=== PATIENT | male | born 1970 | race Caucasian/White ===

== ENCOUNTER → 2016-10-19 | Outpatient (CLI) | payer BC ==
[2016-10-19 15:45] VITALS: BP 164/85; PULSE 68; RESP 16; TEMP 98.1; BMI 46.3
[2016-10-19 16:51] LABS: CH 32.6; CHCM 35.5; HCT 43.5 % (39.0-53.0); HDW 2.94; HGB 15.3 gm/dL (13.0-17.5); MCH 32.4 pg (25.0-35.0); MCHC 35.1 g/dL (31.0-37.0); MCV 92.4 fL (80.0-100.0); Mean Platelet Volume 6.9; RDW 13.1 % (11.5-15.5); WBC 6.8 k/uL (3.8-10.6)
[2016-10-19 16:57] LABS: INR 1.1 (<1.1); Partial Thromboplastin Time 27.1 sec (22.0-30.0); Prothrombin Time 10.9 sec (9.0-12.0)
[2016-10-19 17:38] LABS: ALT 38 U/L (21-72); AST 30 U/L (17-59); Alkaline Phosphatase 74 U/L (38-126); Anion Gap 9 mmol/L; Blood Urea Nitrogen 21 mg/dL (9-20); Calcium 9.5 mg/dL (8.4-10.2); Carbon Dioxide 27 mmol/L (22-30); Chloride 107 mmol/L (98-107); Cholesterol 210 mg/dL (<200); Glucose 76 mg/dL (74-99); HDL Cholesterol 44 mg/dL (40-60); Iron 73 ug/dL (49-181); Magnesium 2.1 mg/dL (1.6-2.3); Non-African American GFR(MDRD) >60 (>60 ml/min/1.73 sqM); Potassium 3.8 mmol/L (3.5-5.1); Sodium 143 mmol/L (137-145); Total Bilirubin 0.6 mg/dL (0.2-1.3); Total Protein 6.9 g/dL (6.3-8.2); Triglycerides 206 mg/dL (<150)
[2016-10-19 17:49] LABS: % Iron Saturation 21.7 % (20-50); Prealbumin 31 mg/dL (18-36); Total Iron Binding Capacity 336 ug/dL (261-462)
[2016-10-19 17:54] LABS: Hemoglobin A1C 5.1 % (4.2-6.1)
[2016-10-19 18:43] LABS: Vitamin B12 487 pg/mL (239-931)
[2016-10-22 21:25] LABS: Selenium 146 mcg/L (63-160)
--- NOTE | 2016-11-11 20:59 | P.PN ---
Progress Note - Text DATE OF SERVICE: 10/19/2016. CHIEF COMPLAINT: Follow-up sleeve gastrectomy. HISTORY OF PRESENT ILLNESS: Mr. Emanuel Macias is a pleasant 46-year-old gentleman who is status post sleeve gastrectomy from September 22, 2014. He is now over 2 years out from his sleeve gastrectomy. His highest weight for 5 feet 11 inches frame was 450 pounds. [place] body weight is 178 pounds. Today he comes in weighing 332 pounds. He has lost 118 pounds. Since his last evaluation over a year ago he has actually gained 21 pounds. Percent excess weight loss is now reduced to 44%. Body mass index is reduced from 62.9 down to 46.4. BMI point reduction is 16.5. He still is 154 pounds overweight. He also reports that he actually had regained more weight in the last 6 months. However, he has been able lose at least 20 to 30 pounds in the interim. He reports increased gastroesophageal reflux disease with his weight gain. He was looking into a panniculectomy, as he reports chronic back pain and discomfort from his pannus including panniculitis. He now presents for further evaluation and management. PAST MEDICAL HISTORY: 1. Super morbid obesity. 2. Obstructive sleep apnea. 3. Vitamin D deficiency. 4. Hypertension. 5. Osteoarthritis. 6. Asthma. 7. Gastroesophageal reflux disease. 8. History of colon polyps. 9. Hemorrhoids. 10. History of hypothyroidism. PAST SURGICAL HISTORY: 1. Colonoscopy. 2. Upper endoscopy. 3. Hemorroidectomy. 4. Uvulopalatoplasty. 5. Laparoscopic cholecystectomy. 6. Sleep study. 7. Status post sleeve gastrectomy. MEDICATIONS: 1. Amlodipine. 2. Potassium. 3. Niacin. 4. Metoprolol. 5. Barnard. 6. Vitamin D. 7. Calcium. 8. Benazepril. 9. Strattera. ALLERGIES: 1. PENICILLIN. 2. SULFA. SOCIAL HISTORY: History of past tobacco abuse. His is at bedside. FAMILY HISTORY: Had an uncle with colon cancer. No family history of esophageal or stomach cancer. He has a family history of early stroke in his mother. REVIEW OF SYSTEMS: CONSTITUTIONAL: Highest weight of 450 pounds. Initial body mass index of 62.9. He has lost 118 pound in the last 2 years. Percent excess weight loss is 44%. He is still 154 pounds overweight. BMI point reduction is 16.5. RESPIRATORY: He does report improvement in his sleep with his history of sleep apnea. CARDIOVASCULAR: For his hypertension, he does report improvement in his blood pressure although he is taking two to three different blood pressure medications. MUSCULOSKELETAL: He also noted improvement of his lower back pain including bilateral knee pain. GASTROINTESTINAL: He also reports gastroesophageal reflux disease has increased since his weight gain. ENDOCRINE: New onset hypothyroidism. He has been started on thyroid medication. HEENT: No active trouble with vision or hearing. ENDOCRINE: No diabetes or hypothyroidism. NEURO: No reports of stroke or seizure disorder. PSYCH: No reports of depression or suicidal ideation. HEMATOLOGIC: Denies any easy bruising or bleeding or coagulopathy in his family. PHYSICAL EXAM: VITAL SIGNS: 98.1, 68, 16, 154/85, 5 foot 11, 332 pounds. Body mass index of 46.4. GENERAL: Well-developed male in no acute distress. ABDOMEN: Soft, nontender, nondistended. No palpable incisional hernias. Pannus extends over pubis over 8 cm, mild hyperemic consistent with panniculitis. Weight of pannus of over 15 pounds. MUSCULOSKELETAL: No clubbing, cyanosis, or edema. HEENT: No scleral icterus. Extraocular movements grossly intact. Moist buccal mucosa. Head is atraumatic, normocephalic. Hears conversational speech. No nasal drainage. NECK: Supple without lymphadenopathy. CHEST: Nonlabored respirations. Non-labored respirations and equal bilateral excursions. CARDIOVASCULAR: Regular rate. NEURO: No focal or lateralizing signs. Cranial nerves II to XII grossly intact. PSYCH: Appropriate affect. Alert and oriented to person, place and time. LABS: White count normal at 6.8. Hemoglobin normal at 15.3. BUN elevated at 21. Hemoglobin A1c normal at 5.1%. Iron is normal at 73. Triglycerides elevated at 206. Cholesterol elevated at 210. LDL elevated at 125. Albumin and prealbumin were within normal limits. Zinc was low. Thyroid-stimulating hormone, now within normal limits of 1.3. ASSESSMENT: 1. Morbid obesity due to excess calories. 2. Body mass index reduced from 62.9 down to 46.4. 3. Status post sleeve gastrectomy. 4. Weight gain following sleeve gastrectomy. 5. Massive weight loss of 139 pounds. 6. Hypothyroidism, now controlled. 7. Hypotestosteronism. 8. Chronic fatigue. 9. History obstructive sleep apnea. 10. Panniculitis despite medical treatment. 11. Hypertensive heart disease stable. 12. Hypertriglyceridemia. 13. Hypercholesterolemia. 14. Zinc deficiency. PLAN: 1. Upon his last visit a year ago, he was diagnosed with hypothyroidism and he has maintained well with his current dose. We will continue his current dose as stated. 2. With his weight gain, recommend reinstituting bariatric protein diet whereby his goal protein intake needs to exceed over 75 to 90 grams daily. 3. Recommend correction of his zinc deficiency with 50 mg daily. 4. He is looking into a panniculectomy, although he has maintained 100 plus pounds weight loss, I have recommended getting his procedure where he closer to his goal. At this time, we will continue with dietary surveillance and counseling. 5. Panniculectomy packet also reviewed. Benefits and risks of panniculectomy including bleeding, infection, need for further surgery, and postoperative seroma and chronic pain, flap failure, were described; however, not limited to the above stated. 6. Recommend follow-up upon completion of his bariatric metabolic panel and more importantly follow-up of weight loss.
== END | disposition home or self-care (01) ==
LOC: BARWHC3 14:58
PROVIDERS: ATTEND Surgery Plastic and Reconstructive Surgery
DX: Z48.815 Encounter for surgical aftercare following surgery on the digestive system (principal); E66.01 Morbid (severe) obesity due to excess calories; E50.8 Other manifestations of vitamin A deficiency; E03.9 Hypothyroidism, unspecified; E89.1 Postprocedural hypoinsulinemia; K90.89 Other intestinal malabsorption; E55.9 Vitamin D deficiency, unspecified; N19 Unspecified kidney failure; R63.4 Abnormal weight loss; K50.90 Crohn's disease, unspecified, without complications; I11.9 Hypertensive heart disease without heart failure; E29.1 Testicular hypofunction; R53.82 Chronic fatigue, unspecified; G47.33 Obstructive sleep apnea (adult) (pediatric); M19.90 Unspecified osteoarthritis, unspecified site; E78.1 Pure hyperglyceridemia; M79.3 Panniculitis, unspecified; E78.00 Pure hypercholesterolemia, unspecified; E60 Dietary zinc deficiency; Z71.3 Dietary counseling and surveillance; Z88.0 Allergy status to penicillin; Z88.2 Allergy status to sulfonamides; Z98.84 Bariatric surgery status; Z68.42 Body mass index [BMI] 45.0-49.9, adult; Z87.891 Personal history of nicotine dependence; Z79.899 Other long term (current) drug therapy
CPT/HCPCS: 80053; 80061; 82306; 82525; 82607; 82728; 82746; 83036; 83540; 83550; 83735; 83970; 84100; 84134; 84255; 84425; 84443; 84590; 84630; 85027; 85610; 85730; 99211

== ENCOUNTER → 2017-01-26 | Outpatient (CLI) | payer BC ==
--- NOTE | 2017-01-27 16:13 | ECHOF ---
Referral Reason:I10 Hypertension MEASUREMENTS -------- HEIGHT: 180.3 cm WEIGHT: 147.4 kg BP: 150/75 RVIDd: 3.1 cm (< 3.3) IVSd: 1.6 cm (0.6 - 1.1) LVIDd: 5.0 cm (3.9 - 5.3) LVPWd: 1.5 cm (0.6 - 1.1) IVSs: 2.2 cm LVIDs: 2.6 cm LVPWs: 1.9 cm LAESV Index (A-L): 20.94 ml/m Ao Diam: 3.8 cm (2.0 - 3.7) AV Cusp: 2.1 cm (1.5 - 2.6) LA Diam: 4.3 cm (2.7 - 3.8) MV E Roldan: 0.68 m/s MV DecT: 317 ms MV A Roldan: 0.69 m/s MV E/A Ratio: 0.99 RAP: 5.00 mmHg RVSP: 9.79 mmHg FINDINGS -------- Sinus rhythm. This was a technically adequate study. The left ventricular size is normal. There is moderate concentric left ventricular hypertrophy. Overall left ventricular systolic function is normal with, an EF between 55 - 60 %. The right ventricle is normal in size and function. Normal LA size by volume 22+/-6 ml/m2. The right atrium is normal in size. The aortic valve is trileaflet, and appears structurally normal. No aortic stenosis or regurgitation. The mitral valve is normal. There is trace to mild mitral regurgitation. Trace tricuspid regurgitation present. There is no evidence of pulmonary hypertension. The right ventricular systolic pressure, as measured by Doppler, is 9.79mmHg. There is no pulmonic regurgitation present. The aortic root size is normal. Normal inferior vena cava with normal inspiratory collapse consistent with estimated right atrial pressure of 5 mmHg. There is no pericardial effusion. CONCLUSIONS -------- 1. Sinus rhythm. 2. There is no pulmonic regurgitation present. 3. There is no pericardial effusion. 4. This was a technically adequate study. 5. There is moderate concentric left ventricular hypertrophy. 6. Overall left ventricular systolic function is normal with, an EF between 55 - 60 %. 7. Normal LA size by volume 22+/-6 ml/m2. 8. The aortic valve is trileaflet, and appears structurally normal. No aortic stenosis or regurgitation. 9. There is trace to mild mitral regurgitation. 10. Trace tricuspid regurgitation present. 11. There is no evidence of pulmonary hypertension. WAREHOUSE EXAMINER: Yuri Richards RDCS
== END | disposition home or self-care (01) ==
LOC: RADECHMAIN 16:14
PROVIDERS: ATTEND Family Medicine
DX: I34.0 Nonrheumatic mitral (valve) insufficiency (principal); I10 Essential (primary) hypertension; I51.7 Cardiomegaly
CPT/HCPCS: 93306

== ENCOUNTER 2017-10-18 08:58 | Day surgery (SDC) | payer OTHER, BC ==
[2017-10-13 14:45] VITALS: BMI 46.0
[~2017-10-18 08:58] MED LIST: LACTATED RINGERS 1,000 ML IV SCH; LIDOCAINE 1% 20 ML VIAL (10MG/ML) FOR IV START INTRADERMA PRN
--- NOTE | 2017-10-18 09:09 | P.GSHP ---
History of Present Illness H&P Date: 10/18/17 CHIEF COMPLAINT: Colon screen HISTORY OF PRESENT ILLNESS: The patient is a 47-year-old male who presents for colon screen. Lower endoscopy was offered for further evaluation and management. PAST MEDICAL HISTORY: Please see list. PAST SURGICAL HISTORY: Please see list. MEDICATIONS: Please see list. ALLERGIES: Please see list. SOCIAL HISTORY: No illicit drug use FAMILY HISTORY: No reports of Crohn disease or ulcerative colitis. REVIEW OF ORGAN SYSTEMS: CONSTITUTIONAL: No reports of fevers or chills. PHYSICAL EXAM: VITAL SIGNS: Stable GENERAL: Well-developed pleasant in no acute distress. HEENT: No scleral icterus. Extraocular movements grossly intact. Moist buccal mucosa. NECK: Supple without lymphadenopathy. CHEST: Unlabored respirations. Equal bilateral excursions. CARDIOVASCULAR: Regular rate and rhythm. Distal 2+ pulses. ABDOMEN: Soft, nontender, nondistended. MUSCULOSKELETAL: No clubbing, cyanosis, or edema. ASSESSMENT: 1. Colon screen. PLAN: 1. Recommend proceeding with a lower endoscopy Past Medical History Past Medical History: Asthma, GERD/Reflux, Hypertension, Osteoarthritis (OA), Sleep Apnea/CPAP/BIPAP, Thyroid Disorder Additional Past Medical History / Comment(s): HX OF COLON POLYPS, BLOOD IN STOOL , anal fissure, HEMORRHOIDS, uses C-PAP, PAST HX ASTHMA History of Any Multi-Drug Resistant Organisms: None Reported Past Surgical History: Adenoidectomy, Appendectomy, Bariatric Surgery, Cholecystectomy, Tonsillectomy Additional Past Surgical History / Comment(s): Left ankle surgery, removal of uvula (removed of part of tongue and palate), RICARDO KNEE ARTHROSCOPY, EGD , COLONOSCOPY. gastric sleeve 2014 Past Anesthesia/Blood Transfusion Reactions: Previous Problems w/ Anesthesia Additional Past Anesthesia/Blood Transfusion Reaction / Comment(s): gets very violent when coming out of anesthesia Smoking Status: Never smoker - Past Family History Father Family Medical History: Asthma, Hypertension Additional Family Medical History / Comment(s): from aneuryism in 1998 , manic, agent orange, post traumatic stress syndrome Mother Family Medical History: Cancer, Diabetes Mellitus, Hypertension Additional Family Medical History / Comment(s): uterine and bone, skin cancer, 2 valves replaced, lapband Medications and Allergies Home Medications Medication Instructions Recorded Confirmed Type Atomoxetine HCl [Strattera] 80 mg PO QAM 07/30/14 10/13/17 History Cholecalciferol [Vitamin D3] 5,000 unit PO DAILY 07/30/14 10/13/17 History Niacin [Niaspan] 1,000 mg PO 209907/30/14 10/13/17 History Potassium(Unknown Dose) 1,500 mg PO 209908/26/14 10/13/17 History Metoprolol Tartrate [Lopressor] 200 mg PO QAM 12/17/14 10/13/17 History Calcium Carbonate [Calcium] 600 mg PO BID #60 tablet 12/23/15 10/13/17 Rx Benazepril HCl 40 mg PO DAILY 01/28/16 10/13/17 History Omeprazole 40 mg PO DAILY #90 capsule. 10/19/16 10/13/17 Rx Levothyroxine Sodium [Synthroid] 50 mcg PO DAILY #90 tab 11/05/16 10/13/17 Rx Aspirin [Adult Low Dose Aspirin EC] 81 mg PO DAILY 10/13/17 10/13/17 History Hydrochlorothiazide [Hydrodiuril] 25 mg PO TID 10/13/17 10/13/17 History amLODIPine [Norvasc] 10 mg PO DAILY 10/13/17 10/13/17 History traMADol HCL [Ultram] 50 mg PO Q6HR PRN 10/13/17 10/13/17 History Allergies Allergy/AdvReac Type Severity Reaction Status Date / Time Penicillins Allergy Swelling Verified 10/13/17 14:36 Sulfa (Sulfonamide Allergy Unknown Verified 10/13/17 14:36 Antibiotics)
[2017-10-18 09:27] VITALS: TEMP 97.8
[2017-10-18] MEDS ORDERED: LIDOCAINE 1% INJ 10MG/ML (20 ML MDV) ONE (10:40)
[2017-10-18] MEDS ORDERED: PROPOFOL 10 MG/ML 20 ML VIAL IV ONE (10:40)
--- NOTE | 2017-10-18 11:08 | P.PCN ---
Date of Procedure: 10/18/17 Description of Procedure: PREOPERATIVE DIAGNOSIS: Colonoscopy screening. Personal history of colon polyps. POSTOPERATIVE DIAGNOSIS: Colonoscopy screening. Personal history of colon polyps. Multiple tubular adenomas throughout the colon. Internal hemorrhoids, grade 2. Sigmoid diverticulosis without inflammation OPERATION: Colonoscopy to the ileocecal valve and appendiceal orifice. Colonoscopy with multiple cold forceps biopsies. SURGEON: Liliam Sloan MD. ANESTHESIA: MAC. INDICATIONS: The patient is a 47-year-old male who presents for colonoscopy screening. Benefits and risks were described and informed consent was obtained. DESCRIPTION OF PROCEDURE: The patient had undergone Gatorade, MiraLAX and Dulcolax prep. He had been brought into the operating room and laid in the left lateral decubitus position. After adequate intravenous sedation, the rectum was examined with 2% lidocaine jelly. No external hemorrhoids were encountered. The rectal tone was within normal limits. No lesions were palpated in the rectal vault. An Olympus colonoscope was advanced until the ileocecal valve and appendiceal orifice were clearly viewed. The prep was fair with visualization of the mucosal folds. The scope was removed with visualization of each mucosal fold. Diverticulosis of the descending and sigmoid colon was encountered. Multiple colonic polyps were found and cold forcep biopsy. No evidence of focal colitis was found. Retroflexion of the scope demonstrated grade 2 internal hemorrhoids with inflammation. The colon was desufflated. The patient had tolerated the procedure well. Withdrawal time was over 6 minutes. FINDINGS: Internal hemorrhoids, grade 2 with inflammation No external hemorrhoids No arteriovenous malformations. Diverticulosis of the descending and sigmoid colon Removal of 4 polyps from the proximal, mid transverse colon and descending colon : - Cold forceps biopsy at 40 cm from the anal verge, 4 mm polyp. - Cold forceps biopsy at proximal transverse colon, 4 mm polyp. - Cold forceps biopsy at mid transverse colon 2, 3 mm polyps. No focal colitis. RECOMMENDATIONS: Repeat colonoscopy 5 years, 2022. Plan - Discharge Summary New Discharge Prescriptions: No Action Niacin [Niaspan] 1,000 mg PO 2100 Atomoxetine HCl [Strattera] 80 mg PO QAM Cholecalciferol [Vitamin D3] 5,000 unit PO DAILY Potassium(Unknown Dose) 1,500 mg PO 2100 Metoprolol Tartrate [Lopressor] 200 mg PO QAM Calcium Carbonate [Calcium] 600 mg PO BID #60 tablet Benazepril HCl 40 mg PO DAILY Omeprazole 40 mg PO DAILY #90 capsule. Levothyroxine Sodium [Synthroid] 50 mcg PO DAILY #90 tab traMADol HCL [Ultram] 50 mg PO Q6HR PRN PRN Reason: Pain amLODIPine [Norvasc] 10 mg PO DAILY Aspirin [Adult Low Dose Aspirin EC] 81 mg PO DAILY Hydrochlorothiazide [Hydrodiuril] 25 mg PO TID Discharge Medication List Atomoxetine HCl [Strattera] 80 mg PO QAM 07/30/14 [History] Cholecalciferol [Vitamin D3] 5,000 unit PO DAILY 07/30/14 [History] Niacin [Niaspan] 1,000 mg PO 209907/30/14 [History] Potassium(Unknown Dose) 1,500 mg PO 209908/26/14 [History] Metoprolol Tartrate [Lopressor] 200 mg PO QAM 12/17/14 [History] Calcium Carbonate [Calcium] 600 mg PO BID #60 tablet 12/23/15 [Rx] Benazepril HCl 40 mg PO DAILY 01/28/16 [History] Omeprazole 40 mg PO DAILY #90 capsule. 10/19/16 [Rx] Levothyroxine Sodium [Synthroid] 50 mcg PO DAILY #90 tab 11/05/16 [Rx] Aspirin [Adult Low Dose Aspirin EC] 81 mg PO DAILY 10/13/17 [History] Hydrochlorothiazide [Hydrodiuril] 25 mg PO TID 10/13/17 [History] amLODIPine [Norvasc] 10 mg PO DAILY 10/13/17 [History] traMADol HCL [Ultram] 50 mg PO Q6HR PRN 10/13/17 [History]
[2017-10-18 11:31] VITALS: RESP 18
[2017-10-18 11:53] VITALS: BP 125/78; PULSE 77
== END 2017-10-18 12:02 | disposition home or self-care (01) ==
LOC: ORWHC2ENDO 08:58
PROVIDERS: ATTEND Surgery Plastic and Reconstructive Surgery
DX: D12.3 Benign neoplasm of transverse colon (principal); K63.5 Polyp of colon; K57.30 Diverticulosis of large intestine without perforation or abscess without bleeding; K64.1 Second degree hemorrhoids; Z86.010 Personal history of colon polyps; J45.909 Unspecified asthma, uncomplicated; K21.9 Gastro-esophageal reflux disease without esophagitis; I10 Essential (primary) hypertension; M19.90 Unspecified osteoarthritis, unspecified site; E07.9 Disorder of thyroid, unspecified; G47.33 Obstructive sleep apnea (adult) (pediatric); Z99.89 Dependence on other enabling machines and devices; Z98.84 Bariatric surgery status; Z79.82 Long term (current) use of aspirin; Z79.899 Other long term (current) drug therapy; Z88.0 Allergy status to penicillin; Z88.2 Allergy status to sulfonamides
CPT/HCPCS: 88305; 45380; J2001; J2704

== ENCOUNTER 2017-12-07 14:18 | Day surgery (SDC) | payer OTHER, BC ==
--- NOTE | 2017-12-07 12:38 | P.GSHP ---
History of Present Illness H&P Date: 12/07/17 CHIEF COMPLAINT: Rectal bleeding HISTORY OF PRESENT ILLNESS: The patient is a 47-year-old male who presents for removal of hemorrhoids. PAST MEDICAL HISTORY: Please see list. PAST SURGICAL HISTORY: Please see list. MEDICATIONS: Please see list. ALLERGIES: Please see list. SOCIAL HISTORY: No illicit drug use FAMILY HISTORY: No reports of Crohn disease or ulcerative colitis. REVIEW OF ORGAN SYSTEMS: CONSTITUTIONAL: No reports of fevers or chills. PHYSICAL EXAM: VITAL SIGNS: Stable GENERAL: Well-developed pleasant in no acute distress. HEENT: No scleral icterus. Extraocular movements grossly intact. Moist buccal mucosa. NECK: Supple without lymphadenopathy. CHEST: Unlabored respirations. Equal bilateral excursions. CARDIOVASCULAR: Regular rate and rhythm. Distal 2+ pulses. ABDOMEN: Soft, nontender, nondistended. MUSCULOSKELETAL: No clubbing, cyanosis, or edema. ASSESSMENT: 1. Rectal bleeding PLAN: 1. Recommend removal of hemorrhoids Past Medical History Past Medical History: Asthma, GERD/Reflux, Hypertension, Osteoarthritis (OA), Sleep Apnea/CPAP/BIPAP, Thyroid Disorder Additional Past Medical History / Comment(s): HX OF COLON POLYPS, BLOOD IN STOOL , anal fissure, HEMORRHOIDS, uses C-PAP, PAST HX ASTHMA History of Any Multi-Drug Resistant Organisms: None Reported Past Surgical History: Adenoidectomy, Appendectomy, Bariatric Surgery, Cholecystectomy, Tonsillectomy Additional Past Surgical History / Comment(s): Left ankle surgery, removal of uvula (removed of part of tongue and palate), RICARDO KNEE ARTHROSCOPY, EGD , COLONOSCOPY. gastric sleeve 2014 Past Anesthesia/Blood Transfusion Reactions: Previous Problems w/ Anesthesia Additional Past Anesthesia/Blood Transfusion Reaction / Comment(s): gets very violent when coming out of anesthesia Smoking Status: Never smoker - Past Family History Father Family Medical History: Asthma, Hypertension Additional Family Medical History / Comment(s): from aneuryism in 1998 , manic, agent orange, post traumatic stress syndrome Mother Family Medical History: Cancer, Diabetes Mellitus, Hypertension Additional Family Medical History / Comment(s): uterine and bone, skin cancer, 2 valves replaced, lapband Medications and Allergies Home Medications Medication Instructions Recorded Confirmed Type Atomoxetine HCl [Strattera] 80 mg PO QAM 07/30/14 12/04/17 History Cholecalciferol [Vitamin D3] 5,000 unit PO DAILY 07/30/14 12/04/17 History Niacin [Niaspan] 1,000 mg PO 209907/30/14 12/04/17 History Potassium(Unknown Dose) 1,500 mg PO 209908/26/14 12/04/17 History Metoprolol Tartrate [Lopressor] 200 mg PO QAM 12/17/14 12/04/17 History Calcium Carbonate [Calcium] 600 mg PO BID #60 tablet 12/23/15 12/04/17 Rx Benazepril HCl 40 mg PO DAILY 01/28/16 12/04/17 History Omeprazole 40 mg PO DAILY #90 capsule.dr 10/19/16 12/04/17 Rx Levothyroxine Sodium [Synthroid] 50 mcg PO DAILY #90 tab 11/05/16 12/04/17 Rx Aspirin [Adult Low Dose Aspirin EC] 81 mg PO DAILY 10/13/17 12/04/17 History Hydrochlorothiazide [Hydrodiuril] 25 mg PO TID 10/13/17 12/04/17 History amLODIPine [Norvasc] 10 mg PO DAILY 10/13/17 12/04/17 History traMADol HCL [Ultram] 50 mg PO Q6HR PRN 10/13/17 12/04/17 History Allergies Allergy/AdvReac Type Severity Reaction Status Date / Time Penicillins Allergy Swelling Verified 12/04/17 10:24 Sulfa (Sulfonamide Allergy Unknown Verified 12/04/17 10:24 Antibiotics)
[~2017-12-07 14:18] MED LIST changes: +CLINDAMYCIN 900 MG in DEXTROSE 5% IN WATER 50 ML IVPB STA; +DEXAMETHASONE SOD PHOSPHATE 10 MG/ML 1 ML VIAL IV ONE; +HYDROmorphone 0.5 MG/0.5 ML SYRINGE IVP PRN; -LACTATED RINGERS 1,000 ML IV SCH; -LIDOCAINE 1% 20 ML VIAL (10MG/ML) FOR IV START INTRADERMA PRN; +MIDAZOLAM 2 MG/2 ML VIAL IV PRN; +NA PHOS,M-B/NA PHOS,DI-BA 133 ML ENEMA RECTAL ONE; +ONDANSETRON 4 MG/2 ML VIAL IVP ONE; +Pre Op ABX Message 1 EACH MISC MISCELLANE ONE; +metroNIDAZOLE-NS PMX 500 MG in SALINE 100 100ML.BAG IVPB ONE
[2017-12-07] MEDS ORDERED: LIDOCAINE 1% 20 ML VIAL (10MG/ML) FOR IV START INTRADERMA ONE (15:00)
[2017-12-07] MEDS: LACTATED RINGERS 1,000 ML IV SCH (15:01)
[2017-12-07] MEDS ORDERED: MIDAZOLAM 2 MG/2 ML VIAL ONE (18:02)
[2017-12-07] MEDS ORDERED: fentaNYL (PF) 50 MCG/ML 2 ML AMP ONE (18:02)
[2017-12-07] MEDS ORDERED: BUPIVACAINE LIPOSOME/PF 1.3% 20 ML, SODIUM CHLORIDE 0.9% 10 ML MISCELLANE STA ×2 (18:29)
[2017-12-07] MEDS ORDERED: HYDROcodone/APAP 5-325MG 1 EACH TAB PO PRN (19:13)
[2017-12-07] MEDS ORDERED: NALOXONE 0.4 MG/ML 1 ML VIAL IV PRN (19:13)
[2017-12-07] MEDS ORDERED: HYDROmorphone 0.5 MG/0.5 ML SYRINGE IVP PRN (19:13)
[2017-12-07] MEDS ORDERED: DOCUSATE 100 MG CAP PO PRN (19:14)
--- NOTE | 2017-12-07 19:18 | P.PCN ---
Date of Procedure: 12/07/17 Preoperative Diagnosis: Grade 3 hemorrhoids with bleeding Postoperative Diagnosis: Same Procedure(s) Performed: Excision of hemorrhoids 3, with LigaSure Anesthesia: MAC, local, spinal Surgeon: Liliam Sloan Estimated Blood Loss (ml): 1 Pathology: other (Hemorrhoids) Condition: stable Disposition: floor Operative Findings: Bleeding internal hemorrhoids excised with ligature
[2017-12-07] MEDS: metroNIDAZOLE 500 MG TAB PO SCH (23:17)
[2017-12-07] MEDS: HYDROCHLOROTHIAZIDE 25 MG TAB PO SCH (23:17)
[2017-12-07 23:44] VITALS: BMI 50.2
[2017-12-08 03:02] VITALS: RESP 16
[2017-12-08] MEDS: LACTATED RINGERS 1,000 ML IV SCH (06:00)
[2017-12-08] MEDS ORDERED: LEVOTHYROXINE 50 MCG TAB PO SCH (06:30)
[2017-12-08 07:21] VITALS: BP 152/82; PULSE 62; TEMP 98.5
[2017-12-08] MEDS ORDERED: PANTOPRAZOLE 40 MG TABLET PO SCH (07:30)
[2017-12-08] MEDS ORDERED: METOPROLOL TARTRATE 50 MG TAB PO SCH (09:00)
[2017-12-08] MEDS ORDERED: ASPIRIN 81 MG PO SCH (09:00)
[2017-12-08] MEDS ORDERED: LISINOPRIL 20 MG TAB PO SCH (09:00)
[2017-12-08] MEDS ORDERED: NON-FORMULARY DRUG (Atomoxetine Hcl [Strattera] 80 MG) PO SCH (09:00)
[2017-12-08] MEDS ORDERED: amLODIPine 10 MG TAB PO SCH (09:00)
--- NOTE | 2017-12-08 09:19 | P.DS ---
Providers Expected date of discharge: 12/08/17 Attending physician: Liliam Sloan Primary care physician: Nacho Mishra [facility] Course: 47-year-old male presented to undergo an elective hemorrhoidectomy for episodes of rectal bleeding patient underwent an excision of hemorrhoids 3 done on December 07 no postop events patient was felt to be stable and appropriate proceed with a discharge Impression discharge diagnosis Grade 3 hemorrhoids with rectal bleeding Bleeding internal hemorrhoids excised with liqature done on December 07 Morbid obesity BMI 48 The above impression and plan of care have been discussed and directed by signing physician. Mary Crawley nurse practitioner acting as scribe for signing physician. Plan - Discharge Summary New Discharge Prescriptions: New traMADol HCL [Ultram] 50 mg PO Q4-6H PRN #30 tab PRN Reason: Mild To Moderate Pain Docusate [Colace] 100 mg PO DAILY #30 capsule HYDROcodone/APAP 5-325MG [[place] 5-325] 1 tab PO Q4HR PRN 3 Days #18 tab PRN Reason: Pain metroNIDAZOLE [Flagyl] 500 mg PO BID #14 tab No Action Niacin [Niaspan] 1,000 mg PO 2100 Atomoxetine HCl [Strattera] 80 mg PO QAM Cholecalciferol [Vitamin D3] 5,000 unit PO DAILY Potassium(Unknown Dose) 1,500 mg PO 2100 Metoprolol Tartrate [Lopressor] 200 mg PO QAM Calcium Carbonate [Calcium] 600 mg PO BID #60 tablet Benazepril HCl 40 mg PO DAILY Omeprazole 40 mg PO DAILY #90 capsule. Levothyroxine Sodium [Synthroid] 50 mcg PO DAILY #90 tab traMADol HCL [Ultram] 50 mg PO Q6HR PRN PRN Reason: Pain amLODIPine [Norvasc] 10 mg PO DAILY Aspirin [Adult Low Dose Aspirin EC] 81 mg PO DAILY Hydrochlorothiazide [Hydrodiuril] 25 mg PO TID Discharge Medication List Atomoxetine HCl [Strattera] 80 mg PO QAM 07/30/14 [History] Cholecalciferol [Vitamin D3] 5,000 unit PO DAILY 07/30/14 [History] Niacin [Niaspan] 1,000 mg PO 2100 07/30/14 [History] Potassium(Unknown Dose) 1,500 mg PO 2100 08/26/14 [History] Metoprolol Tartrate [Lopressor] 200 mg PO QAM 12/17/14 [History] Calcium Carbonate [Calcium] 600 mg PO BID #60 tablet 12/23/15 [Rx] Benazepril HCl 40 mg PO DAILY 01/28/16 [History] Omeprazole 40 mg PO DAILY #90 capsule.dr 10/19/16 [Rx] Levothyroxine Sodium [Synthroid] 50 mcg PO DAILY #90 tab 11/05/16 [Rx] Aspirin [Adult Low Dose Aspirin EC] 81 mg PO DAILY 10/13/17 [History] Hydrochlorothiazide [Hydrodiuril] 25 mg PO TID 10/13/17 [History] amLODIPine [Norvasc] 10 mg PO DAILY 10/13/17 [History] traMADol HCL [Ultram] 50 mg PO Q6HR PRN 10/13/17 [History] Docusate [Colace] 100 mg PO DAILY #30 capsule 12/08/17 [Rx] HYDROcodone/APAP 5-325MG [[place] 5-325] 1 tab PO Q4HR PRN 3 Days #18 tab [Rx] metroNIDAZOLE [Flagyl] 500 mg PO BID #14 tab 12/08/17 [Rx] traMADol HCL [Ultram] 50 mg PO Q4-6H PRN #30 tab 12/08/17 [Rx] Follow up Appointment(s)/Referral(s): Liliam Sloan MD [STAFF PHYSICIAN] - 12/19/17 2:00 pm Patient Instructions/Handouts: *Surgery [facility] - Hemorrhoidectomy Discharge Instructions, Sitz Bath (DC) Activity/Diet/Wound Care/Special Instructions: Shower daily. No lifting over 10 pounds for the next 6 weeks. Sitz bath after each bowel movement daily every a.m. and at bedtime May use ice packs to surgical site. No driving while taking narcotic for pain. Use [id number] Colace stool softener daily Avoid constipation Discharge Disposition: HOME SELF-CARE
[2017-12-08] MEDS: HYDROCHLOROTHIAZIDE 25 MG TAB PO SCH (09:53)
[2017-12-08] MEDS: metroNIDAZOLE 500 MG TAB PO SCH (09:53)
--- NOTE | 2017-12-28 11:58 | P.OP ---
Date of Procedure: 12/07/17 Description of Procedure: SURGEON: HANS KUMAR MD EMBROIDERY OPERATOR: NONE. PREOPERATIVE DIAGNOSES: 1. History of complicated internal hemorrhoids, grade 3 2. History of complicated external hemorrhoids, grade 3 3. History of rectal bleeding. 4. Morbid obesity due to excess calories, BMI 48.8 5. History of sleeve gastrectomy 6. Hypertensive heart disease with cardiomyopathy 7. Hypothyroidism 8. Gastroesophageal reflux disease 9. Obstructive sleep apnea 10. History of anal fissure POSTOPERATIVE DIAGNOSES: 1. History of complicated internal hemorrhoids, grade 3, with active bleeding. 2. History of complicated external hemorrhoids, grade 3, with active bleeding. 3. History of rectal bleeding. 4. Morbid obesity due to excess calories, BMI 48.8 5. History of sleeve gastrectomy 6. Hypertensive heart disease with cardiomyopathy 7. Hypothyroidism 8. Gastroesophageal reflux disease 9. Obstructive sleep apnea 10. History of anal fissure. OPERATION: 1. Excision of internal and external hemorrhoids x 3 using LigaSure. ANESTHESIA: MAC, spinal with Exparel mixture. Estimated Blood Loss (ml): 1 Pathology: other (Hemorrhoids) Condition: stable Disposition: floor PATHOLOGY: 1. Internal, external hemorrhoidal complex x 3. FINDINGS: 1. Grade 3 internal/external hemorrhoidal cushion 3 excised. 2. No anal stricture upon excision of hemorrhoidal complexes. INDICATIONS: The patient is a 47-year-old male who presents with rectal bleeding including complicated internal/external hemorrhoids. He completed a colonoscopy. Surgical intervention was described for hemorrhoidectomy. Benefits and risks of the procedure, including bleeding, infection, incontinence , recurrent pain and recurrence of the hemorrhoids were discussed in detail. Informed consent was obtained. DESCRIPTION: Patient was brought to the operating room. After spinal anesthetic and IV sedation, he was then repositioned the prone jackknife position. Next, the perineum and buttocks was spread apart using Mastisol. The perineum was then prepped and draped in standard sterile fashion using Betadine. Preoperative medication was confirmed. Prior to incision, a timeout protocol was confirmed with surgical team. Initially 2 fingers was easily inserted for dilation of the anus. A perineal block using Exparel was placed. Grade 3 hemorrhoids along all 3 quadrants were identified. Next, using a Won-Mohamud anoscope, each hemorrhoidal cushion was addressed using a hand-held LigaSure after elevating each hemorrhoidal complex using forceps. At the end of the case, digital evaluation were performed without any features of the anal stricture or stenosis. Hemostasis was checked. Several 4 x 4 gauze with bacitracin ointment and mesh underwear was placed. At the end of the procedure, needle, sponge, and counts had been verified correct by the electronic test technician. The patient had tolerated the procedure well. The patient was transferred to the post anesthesia care unit in stable condition. Intraoperative findings including postoperative care instructions were described to his .
== END 2017-12-08 11:15 | disposition home or self-care (01) ==
LOC: OR 14:18 → 3SUR 18:53 → OR 12-08 11:15
PROVIDERS: ATTEND Surgery Plastic and Reconstructive Surgery
DX: K64.2 Third degree hemorrhoids (principal); J45.909 Unspecified asthma, uncomplicated; K21.9 Gastro-esophageal reflux disease without esophagitis; M19.90 Unspecified osteoarthritis, unspecified site; G47.33 Obstructive sleep apnea (adult) (pediatric); Z99.89 Dependence on other enabling machines and devices; F98.8 Other specified behavioral and emotional disorders with onset usually occurring in childhood and adolescence; I25.10 Atherosclerotic heart disease of native coronary artery without angina pectoris; I11.9 Hypertensive heart disease without heart failure; E03.9 Hypothyroidism, unspecified; E66.01 Morbid (severe) obesity due to excess calories; Z68.42 Body mass index [BMI] 45.0-49.9, adult; Z98.84 Bariatric surgery status; Z79.899 Other long term (current) drug therapy; Z79.82 Long term (current) use of aspirin; Z79.890 Hormone replacement therapy; Z88.0 Allergy status to penicillin; Z88.2 Allergy status to sulfonamides
CPT/HCPCS: 88304; 46260; J2250; J1100; J2405; J3010; C9290

== ENCOUNTER → 2018-04-17 | Outpatient (CLI) | payer OTHER, BC ==
[2018-04-17 11:58] LABS: Basophils % (A) 0 %; Eosinophils # (A) 0.2 k/uL (0-0.7); Eosinophils % (A) 3 %; HCT 44.5 % (39.0-53.0); Lymphocytes # (A) 1.4 k/uL (1.0-4.8); Lymphocytes % (A) 24 %; MCH 31.2 pg (25.0-35.0); MCHC 33.7 g/dL (31.0-37.0); MCV 92.7 fL (80.0-100.0); Mean Platelet Volume 7.2; Monocytes # (A) 0.5 k/uL (0-1.0); Monocytes % (A) 8 %; Neutrophils # (A) 3.7 k/uL (1.3-7.7); Neutrophils % (A) 62 %; Platelet Count 157 k/uL (150-450); RDW 12.9 % (11.5-15.5); WBC 5.9 k/uL (3.8-10.6)
[2018-04-17 12:51] LABS: ALT 39 U/L (21-72); AST 30 U/L (17-59); Albumin 3.8 g/dL (3.5-5.0); Alkaline Phosphatase 54 U/L (38-126); Anion Gap 6 mmol/L; Blood Urea Nitrogen 19 mg/dL (9-20); Calcium 9.4 mg/dL (8.4-10.2); Carbon Dioxide 30 mmol/L (22-30); Chloride 108 mmol/L (98-107); Cholesterol 216 mg/dL (<200); Glucose 87 mg/dL (74-99); HDL Cholesterol 38 mg/dL (40-60); LDL Cholesterol,Calculated 140 mg/dL (0-99); Potassium 4.4 mmol/L (3.5-5.1); Sodium 144 mmol/L (137-145); Total Bilirubin 0.6 mg/dL (0.2-1.3); Total Protein 6.6 g/dL (6.3-8.2); Triglycerides 192 mg/dL (<150)
[2018-04-17 13:05] LABS: T4, Free (Free Thyroxine) 0.93 ng/dL (0.78-2.19)
== END | disposition home or self-care (01) ==
LOC: LABWHC1 10:43
PROVIDERS: ATTEND Physician Assistant
DX: I10 Essential (primary) hypertension (principal); E03.9 Hypothyroidism, unspecified
CPT/HCPCS: 36415; 80053; 80061; 84439; 84443; 84481; 85025

== ENCOUNTER → 2020-08-20 | Outpatient (CLI) | payer BC ==
--- NOTE | 2020-08-20 09:37 | XR ---
EXAMINATION TYPE: XR Hip Bilateral and AP pelvis DATE OF EXAM: 08/20/2020 COMPARISON: None HISTORY: Pain, history of broken pelvis TECHNIQUE: AP pelvis and two-view bilateral hips FINDINGS: Femoral heads articulate with the acetabulum. Joint spaces are preserved. Symphysis pubis a nd sacroiliac joints are intact. No acute fractures are identified. IMPRESSION: 1. Normal bilateral hips and AP pelvis
--- NOTE | 2020-08-20 10:31 | XR ---
EXAMINATION TYPE: XR lumbar spine 2 or 3V DATE OF EXAM: 08/20/2020 COMPARISON: None HISTORY: Pain TECHNIQUE: Five-view lumbar spine FINDINGS: There 5 lumbar-type vertebral bodies. Pedicles are intact. There is a grade 1 spondylolisth esis of L4 anterior on L5. Minimal posterior L1 on L2 spondylolisthesis is present. Posterior disc sp jenni narrowing is present L5-S1, L3-4, L2-3. Spondylosis is present throughout the lumbar spine IMPRESSION: 1. Spondylolisthesis of flow 1 posterior on L2 and L4 anterior on L5. 2. Spondylosis. 3. Degenerative disc changes discussed above
== END | disposition home or self-care (01) ==
LOC: RADXRMAIN 08:05
PROVIDERS: ATTEND Nurse Practitioner Family
DX: M43.16 Spondylolisthesis, lumbar region (principal); M47.816 Spondylosis without myelopathy or radiculopathy, lumbar region
CPT/HCPCS: 72100; 73521

== ENCOUNTER → 2020-10-05 | Outpatient (CLI) | payer BC ==
[2020-10-05 11:00] VITALS: BP 156/96; PULSE 67; RESP 18; TEMP 98
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
== END ==
LOC: PNWHC3 10:27
PROVIDERS: ATTEND Anesthesiology
DX: M46.1 Sacroiliitis, not elsewhere classified (principal); M47.816 Spondylosis without myelopathy or radiculopathy, lumbar region; E66.01 Morbid (severe) obesity due to excess calories; J45.909 Unspecified asthma, uncomplicated; I10 Essential (primary) hypertension; F90.9 Attention-deficit hyperactivity disorder, unspecified type; M19.90 Unspecified osteoarthritis, unspecified site; K21.9 Gastro-esophageal reflux disease without esophagitis; Z79.82 Long term (current) use of aspirin; Z79.899 Other long term (current) drug therapy
CPT/HCPCS: 99211

== ENCOUNTER 2020-10-23 11:19 | Day surgery (SDC) | payer BC ==
[2020-10-19 15:36] VITALS: BMI 47.4
[~2020-10-23 11:19] MED LIST changes: -CLINDAMYCIN 900 MG in DEXTROSE 5% IN WATER 50 ML IVPB STA; -DEXAMETHASONE SOD PHOSPHATE 10 MG/ML 1 ML VIAL IV ONE; -HYDROmorphone 0.5 MG/0.5 ML SYRINGE IVP PRN; +LACTATED RINGERS 1,000 ML IV SCH; -MIDAZOLAM 2 MG/2 ML VIAL IV PRN; -NA PHOS,M-B/NA PHOS,DI-BA 133 ML ENEMA RECTAL ONE; -ONDANSETRON 4 MG/2 ML VIAL IVP ONE; -Pre Op ABX Message 1 EACH MISC MISCELLANE ONE; -metroNIDAZOLE-NS PMX 500 MG in SALINE 100 100ML.BAG IVPB ONE
[2020-10-23 11:50] VITALS: TEMP 99.1
[2020-10-23] MEDS ORDERED: ROPIVACAINE 5MG/ML 20ML VIAL ONE (12:48)
[2020-10-23] MEDS ORDERED: fentaNYL (PF) 50 MCG/ML 2 ML AMP ONE (12:48)
[2020-10-23] MEDS ORDERED: methylPREDNISolone ACETATE 40 MG/ML 1 ML VIAL ONE (12:48)
--- NOTE | 2020-10-23 13:03 | P.PCN ---
Date of Procedure: 10/23/20 Procedure(s) Performed: Procedure= Right sacroiliac joints steroid injection under fluoroscopy guidance (fluoroscopy image stored on file in the radiology Department ) Preoperative diagnosis= 1-Right sacroiliitis 2-lumbar spondylosis with facet arthropathy Postoperative diagnosis=Same as preop Diagnosis . Complication = none Condition= stable Anesthesia=Ropivacaine 0.5 % 3 ml only Indication for the procedure= patient complaining of low back pain , examination was positive for severe tenderness over the sacroiliac joints , and patient diagnosed with sacroiliitis, for this reason he was good candidate for sacroiliac joint steroid injection. Description of the procedure= procedure risk and benefits discussed with the patient, including but not limited, risk of infection and bleeding, and ALLERGIC reaction to the medication and not complete pain relief and patient agreed with the preceding patient taken to the operating room, placed in prone position or standard monitors applied to the patient then after induction of anesthesia back prepped with chlorhexidine 3 times , Then under strict sterile technique, first I did the right sacroiliac joint the which was identified under fluoroscopy guidance been local infiltration of the skin and subcu interstitial with lidocaine 1% then 25-gauge 5 inches long Quincke Needle advanced slowly under fluoroscopy and placed in the right sacroiliac joint needle placement confirmed with AP and oblique and lateral view and after appropriate needle placement confirmed and after negative aspiration, or heme , then Ropivacaine 0.5% 3 mL, and 80 mg of Depo-Medrol mixed together and injected in the right sacroiliac joint after negative aspiration patient tolerated the procedure well without any complication.
[2020-10-23 13:06] VITALS: RESP 18
[2020-10-23 13:27] VITALS: BP 117/73; PULSE 54
--- NOTE | 2020-10-23 13:47 | FL ---
EXAMINATION TYPE: FL guided pain mgmt statistic DATE OF EXAM: 10/23/2020 HISTORY: Fluoroscopy time 5 seconds of fluoroscopy provided. IMPRESSION: 1. Fluoroscopy time.
== END 2020-10-23 13:32 | disposition home or self-care (01) ==
LOC: ORPAIN 11:19
PROVIDERS: ATTEND Specialist
DX: M46.1 Sacroiliitis, not elsewhere classified (principal); M47.816 Spondylosis without myelopathy or radiculopathy, lumbar region; Z88.0 Allergy status to penicillin; Z88.2 Allergy status to sulfonamides; I10 Essential (primary) hypertension
CPT/HCPCS: 27096; J1030; J3010; J2795

== ENCOUNTER → 2020-11-06 | Day surgery (SDC) | payer BC ==
[~2020-11-06] MED LIST changes: +IOPAMIDOL M200 10 ML VIAL ONE; -LACTATED RINGERS 1,000 ML IV SCH; +ROPIVACAINE 5MG/ML 20ML VIAL ONE; +TRIAMCINOLONE ACETONIDE 40 MG/ML 1 ML VIAL ONE
[2020-11-06 14:07] VITALS: TEMP 97.1
--- NOTE | 2020-11-06 14:46 | P.PCN ---
Date of Procedure: 11/06/20 Description of Procedure: Preoperative diagnoses: right sacroilitis Postoperative diagnoses: right sacroilitis. Procedure: right sacroiliac joint steroid injection under fluoroscopic guidance. Surgeon: Rom Keen MD Anesthesia: [2 mL of 1% lidocaine and moderate sedation per anesthesia team Fluoroscopy was used for the procedure and fluoroscopic images were saved to the radiology portion of the patient's chart. EBL: None Procedure indication: The patient had a history of severe chronic low back pain, diagnosed with sacroiliitis unresponsive to conservative treatment. Procedure description: The patient was seen and identified in the preoperative holding area, risks and benefits and alternative of the procedure and possible complications discussed with the patient, and patient agreed with the preceding, patient signed the consent, an IV was started, and vital signs were monitored and were stable throughout the procedure, patient was placed in the prone position on table and the lumbosacral area was prepped and draped with a sterile fashion, vital signs were closely monitored during the procedure, the fluoroscopy camera was placed in the contralateral oblique view on the right sacroiliac joint and the lower part of the joint was identified . Then the skin and subcutaneous tissue was anesthetized using 2 mL of 1% lidocaine then a 22- gauge Quincke-type spinal needle advanced slowly under fluoroscopy and placed in the posterior and inferior border of the right sacroiliac joint, placement confirmed with AP and lateral view, and after appropriate needle placement confirmed and after negative aspiration for heme, 1 mL of Isovue 200 was injected revealing intra-articular spread. Then a solution consisting of 2 ml of ropivacaine 0.5% and 40 mg of Kenalog injected after negative aspiration, no paresthesia during the injection, no resistance to injection, and the needle was removed. . Patient tolerated the procedure well without any complication. The patient was returned to supine position after the back was cleaned and a Band-Aid applied, the patient was transported to recovery room in stable condition and monitored for 30 minutes before being discharged home. The patient will follow up with the pain clinic in a few weeks
[2020-11-06 14:53] VITALS: RESP 17
[2020-11-06 15:09] VITALS: BP 121/68; PULSE 54
--- NOTE | 2020-11-06 17:19 | FL ---
EXAMINATION TYPE: FL guided pain mgmt statistic DATE OF EXAM: 11/06/2020 FLUOROSCOPY Fluoroscopy time of 6 seconds was used during right SI joint injection. 1 image/s document/s the pro cedure.
== END ==
LOC: ORPAIN 13:42
PROVIDERS: ATTEND Anesthesiology
DX: G89.29 Other chronic pain (principal); M46.1 Sacroiliitis, not elsewhere classified; Z88.0 Allergy status to penicillin; Z88.2 Allergy status to sulfonamides
CPT/HCPCS: 27096; J3301; Q9966; J2795

== ENCOUNTER → 2020-12-23 | Outpatient (CLI) | payer BC ==
--- NOTE | 2020-12-23 08:46 | P.PN ---
Subjective Progress Note Date: 12/23/20 This is a follow-up visit for this 50 years old male with a history of chronic and severe low back pain, he is diagnosed with lumbar spinal stenosis, right sacroiliitis, and lumbar degenerative disc disease, status post right side sacroiliac joint steroid injection x2 , patient reported that his low back pain improved significantly, currently he has some numbness and tingling sensation in the right lower extremity, denies any motor or sensory deficit he denies any fever or night sweats. he is Very satisfied with the result of the treatment, he is concerned about the numbness and the tingling sensation in the right lower extremity Objective - Vital Signs Vital signs: Vital Signs Temp Pulse 58 L 12/23/20 08:18 Resp 16 12/23/20 08:18 BP 135/86 12/23/20 08:18 Pulse Ox 97 12/23/20 08:18 Intake & Output 12/22/20 12/23/20 12/23/20 18:59 06:59 18:59 Weight 154.221 kg - Exam Physical Examinations : -Constitutiona : Cooperative , not in acute distress . -HEENT : nech : supple , no Lymphadenopathy , normal thyroid size . : eyes : no ptosis , no icterus, no phot ophobia . - neurologic : Cranial nerve II to XII intact , no focal neurological deffecit . -psychatric : alert , oriented X 3 , appropriate affect , intact judgment and insight . -Lymphatic : no Lymphadenopathy . - musculoskeltal : Lumber spine moter stegnth lower extremities ,thigh and legs 5/5 Right side , 5/5 Left side deep tendon reflexes : normal Knee Jerk , normal ankle Jerk lumber facet Loading Test = negative bilaterally Range of motion of the lumbar spine Flexion 30 degrees, extension 10 degrees strait leg raising test = positive at 45 degree side Fabere test = negative bilaterally no tenderness over the Sacroiliac joint on the Right , and Left sides MRI of the lumbar spine bulging disc disease at L4 5 and mild central canal stenosis at L4 5 and there is bulging disc disease at L5-S1 and there is multilevel lumbar facet arthropathy Assessment and Plan Plan: Assessment and plan= 1-right sacroiliitis. 2-lumbar radiculopathy. 3-lumbar spinal stenosis. Pain improved significantly after right-sided sacroiliac joint steroid injections 2. Discussed with the patient the option of doing a right-sided transforaminal epidural steroid injection at L4 5 and L5-S1, and she'll report that his pain and numbness, is not very severe, he preferred to do nothing at this point, prescription for ibuprofen 800 mg when necessary every 8 hours given, and he will follow up in the pain clinic when necessary - PQRS measures = - Patient's medications are documented in the chart. -Tobacco use is positive/negative and counseling.Given. -Patient's has not received pneumococcal vaccine. -Advanced care planning discussed, patient not eligible. -Opiate contract not signed. -Pain positive and follow-up visit/procedure is scheduled. -Patient's blood pressure measured [ 135/86 ] , and documented in the record ,and patient will follow up with the primary care. -Patient's weight was measured and body mass index [ 48.8] above the, normal limits and counseling was done. and patient instructed to follow-up with the primary care physician. -Patient was not identified as an unhealthy alcohol user Time with Patient: Less than 30
== END ==
CPT/HCPCS: 99211

== ENCOUNTER 2021-03-30 08:45 | Day surgery (SDC) | payer BC ==
[2021-03-25 15:59] VITALS: BMI 46.3
[~2021-03-30 08:45] MED LIST changes: -IOPAMIDOL M200 10 ML VIAL ONE; +LACTATED RINGERS 1,000 ML IV SCH; -ROPIVACAINE 5MG/ML 20ML VIAL ONE; -TRIAMCINOLONE ACETONIDE 40 MG/ML 1 ML VIAL ONE
[2021-03-30 09:03] VITALS: TEMP 98.2
[2021-03-30] MEDS ORDERED: DEXAMETHASONE SOD PHOSPHATE 10 MG/ML 1 ML VIAL ONE (09:09)
[2021-03-30] MEDS ORDERED: IOPAMIDOL M200 10 ML VIAL ONE (09:09)
[2021-03-30] MEDS ORDERED: LIDOCAINE 1% INJ 10MG/ML (20 ML MDV) ONE (09:09)
--- NOTE | 2021-03-30 09:34 | P.PCN ---
Date of Procedure: 03/30/21 Surgeon: Jax Lynch Pathology: none sent Condition: stable Disposition: PACU Description of Procedure: PREOPERATIVE DIAGNOSIS: Lumbar radiculopathy POSTOPERATIVE DIAGNOSIS: Lumbar radiculopathy PROCEDURE 1. Transforaminal epidural steroid injection under fluoroscopic guidance at the right L4 5 and L5-S1 levels 2. Lumbar epidurogram. SURGEON: Jax Lynch MD ANESTHESIA: Local only with 1% lidocaine EBL: Minimal PROCEDURE INDICATION: The patient with low back pain and radiculopathy symptoms unresponsive to conservative treatment. PROCEDURE DESCRIPTION / TECHNIQUE: The patient was seen and identified in the preoperative area. Risks, benefits, complications, and alternatives were discussed with the patient. The patient agreed to proceed with the procedure and signed the consent. IV was started, and vital signs were stable. Patient was taken to the OR and time out was completed. The patient was placed in the prone position on procedure table and a pillow was placed under the abdomen to reduce lumbar lordosis. The lumbosacral area was prepped and draped in the usual sterile fashion. Critical pause was taken. Vital signs were closely monitored during the procedure. Conscious sedation was used during the procedure to decrease patients anxiety. The vertebral body of the lumbar vertebra L4 was squared off by tilting the C-arm cephalad then the C-arm was tilted to the oblique position and the target point was at the 6 o'clock position of the pedicle of L4 then skin and deeper tissues were localized with 1% lidocaine. Subsequently, a 22-gauge 5-inch spinal needle was advanced under a tunneled view fluoroscopic guidance just underneath the chin of the Robb dog at the . Pt felt pain in his rt leg for part of a second which resolved after withdrawing the needle back by few millimeters.Under lateral fluoroscopy, the needle was then advanced to the middle of the upper one third of the foramen between( L4,L5). After negative aspiration of CSF and blood and with no paresthesias, 1 mL of omnipaque contrast dye was injected excellent epidurogram and outlining of the L nerve root was identified. .Subsequently, 1.5 mL of block solution containing 5 mg of Decadron and 1 mL of Lidocaine 1% PF was injected. Needle was removed intact . The procedure was repeated in the same manner on the L5-S1 level on the right side with more cephalad tilt of the C-arm .At the end of the procedure, skin was cleansed, and bandages were applied. COMPLICATIONS: None COMMENTS: DISPOSITION / PLANS: The patient was placed in a supine position and transferred to the recovery area in a stable condition for observation. There was no evidence of lower extremity motor or sensory deficit after the procedure. Patient was discharged from the recovery room after meeting discharge
[2021-03-30 09:47] VITALS: RESP 16
[2021-03-30 10:01] VITALS: BP 150/90; PULSE 55
--- NOTE | 2021-03-30 16:09 | FL ---
EXAMINATION TYPE: FL guided pain mgmt statistic DATE OF EXAM: 03/30/2021 FLUOROSCOPY Fluoroscopy time of 27 seconds was used during lumbar spine pain management procedure. 3 image/s doc ument/s the procedure.
== END 2021-03-30 10:08 | disposition home or self-care (01) ==
LOC: ORPAIN 08:45
PROVIDERS: ATTEND Anesthesiology
DX: M54.16 Radiculopathy, lumbar region (principal)
CPT/HCPCS: 64483; 64484; J1100; J2001 ×2; Q9966

== ENCOUNTER → 2022-08-10 | Outpatient (CLI) | payer BC ==
--- NOTE | 2022-08-10 11:11 | CA ---
Stress Echo Report Emanuel Macias Age: 52 Gender: M : 1970 Exam Date: 08/10/2022 09:28 Exam Location: [facility] Ht (in): 62 Wt (lb): 350 Ordering Physician: Nacoh Mishra MD Referring Physician: Tad BLACKMAN Cryptologic Support Specialist: Kierra Carrasquillo RDCS Technologist Procedure CPT: Indication: I10 HYPERTENSION ICD-9 Codes: Rhythm: Patient History: Cardiac Medications: See Attached History Medications in past 24 hours: Contrast: Lumason Stress Results Protocol: Lokesh Total dose(mL): 4 Exercise Duration (min:sec): Max ST Depression (mm): Angina Score: Santiago Score: METS: 7.3 Resting HR: 110 Resting BP: 165 / 69 Peak HR: 156 Peak BP: 221 / 70 Max Predicted HR: 167 93 % Max Predicted HR Target HR: 142 Double Product: [id number] Stress Summary: BP Response: Reason for Termination: Pt reached target heart rate. Cardiac Symptoms: No Symptoms ECG Analysis Resting ECG: Normal sinus rhythm normal axis normal intervals Stress ECG: Patient exercised on Lokesh protocol for a total of 6 minutes achieving 7 mets 85% of predicted maximal heart rate without chest pain or diagnostic ST segment depression Arrhythmia: Echo Analysis Resting Echo: Poor echo windows lumason was used to enhance endocardial visualization Normal LV function and wall motion Peak Echo Analysis: Normal hyperdynamic response of all segments of myocardium MEASUREMENTS (Male/Female) Normal Values CONCLUSIONS Average exercise tolerance Negative stress test by EKG criteria Negative stress echo Dr. Milton Stahl MD (Electronically Signed) Final Date: 10 August 2022 11:10
== END | disposition home or self-care (01) ==
LOC: RADNMMAIN 08:56
PROVIDERS: ATTEND Family Medicine
DX: I10 Essential (primary) hypertension (principal)
CPT/HCPCS: 93351; Q9950

== ENCOUNTER 2022-10-06 07:53 | Day surgery (SDC) | payer BC ==
--- NOTE | 2022-10-06 07:48 | P.GSHP ---
History of Present Illness H&P Date: 10/06/22 CHIEF COMPLAINT: GERD and colon screen HISTORY OF PRESENT ILLNESS: The patient is a 52-year-old male who presents with gastroesophageal reflux disease and need for colon screen. Upper and lower endoscopy were offered for further evaluation and management. PAST MEDICAL HISTORY: Please see list. PAST SURGICAL HISTORY: Please see list. MEDICATIONS: Please see list. ALLERGIES: Please see list. SOCIAL HISTORY: No illicit drug use FAMILY HISTORY: No reports of Crohn disease or ulcerative colitis. REVIEW OF ORGAN SYSTEMS: CONSTITUTIONAL: No reports of fevers or chills. GI: Denies any blood in stools or constipation. PHYSICAL EXAM: VITAL SIGNS: Stable GENERAL: Well-developed pleasant in no acute distress. HEENT: No scleral icterus. Extraocular movements grossly intact. Moist buccal mucosa. NECK: Supple without lymphadenopathy. CHEST: Unlabored respirations. Equal bilateral excursions. CARDIOVASCULAR: Regular rate and rhythm. Distal 2+ pulses. ABDOMEN: Soft, nondistended. MUSCULOSKELETAL: No clubbing, cyanosis, or edema. ASSESSMENT: 1. Gastroesophageal reflux disease 2. Colon screen. PLAN: 1. Recommend proceeding with an upper and lower endoscopy Past Medical History Past Medical History: Asthma, GERD/Reflux, Hypertension, Osteoarthritis (OA), Pneumonia, Sleep Apnea/CPAP/BIPAP Additional Past Medical History / Comment(s): hiatal hernia, hx. of colon polyps, last time one was pre-cancerous, uses CPAP History of Any Multi-Drug Resistant Organisms: None Reported Past Surgical History: Adenoidectomy, Appendectomy, Bariatric Surgery, C holecystectomy, Orthopedic Surgery, Tonsillectomy Additional Past Surgical History / Comment(s): Left ankle surgery, removal of uvula (removed of part of tongue and palate), RICARDO KNEE ARTHROSCOPY, EGD , COLONOSCOPY. gastric sleeve 2014, ricardo knee sugery, PRIOR BACK INJECTIONS Past Anesthesia/Blood Transfusion Reactions: Previous Problems w/ Anesthesia Additional Past Anesthesia/Blood Transfusion Reaction / Comment(s): Can be severely aggressive/violent coming out of anaesthesia. "I hurt a nurse" when coming out. (with bariatric surgery and colonoscopy) Smoking Status: Never smoker - Past Family History Mother Family Medical History: Cancer Additional Family Medical History / Comment(s): uterine and bone, skin cancer, Medications and Allergies Home Medications Medication Instructions Recorded Confirmed Type Atomoxetine HCl [Strattera] 80 mg PO 2200 14/15 03/21/23 History Cholecalciferol [Vitamin D3 (25 10,000 unit PO DAILY 07/30/14 10/04/22 History Mcg = 1000 Iu)] Calcium Carbonate [Calcium] 600 mg PO BID #60 tablet 12/23/15 10/04/22 Rx Benazepril HCl 40 mg PO 0 01/28/16 10/04/22 History Aspirin [Adult Low Dose Aspirin EC] 81 mg PO DAILY 10/13/17 10/04/22 History amLODIPine [Norvasc] 10 mg PO 219910/13/17 10/04/22 History hydroCHLOROthiazide [Hydrodiuril] 25 mg PO 219910/13/17 10/04/22 History traMADol HCL [Ultram] 50 mg PO Q6HR PRN 10/13/17 10/04/22 History HYDROcodone/APAP 5-325MG [[place] 1 tab PO Q4HR PRN 3 Days #18 tab 12/08/17 10/04/22 Rx 5-325] Metoprolol Succinate (ER) [Toprol 200 mg PO 219910/01/20 10/04/22 History Xl] Magnesium 800 mg PO DAILY 10/04/22 10/04/22 History Multivitamins, Thera [Multivitamin 1 tab PO DAILY 10/04/22 10/04/22 History (formulary)] [place]-3 Fatty Acids [[place]-3] 2,000 mg PO DAILY 10/04/22 10/04/22 History Omeprazole 40 mg PO DAILY 10/04/22 10/04/22 History Potassium Citrate 3 tab PO 219910/04/22 10/04/22 History Sildenafil Citrate 100 mg PO 219910/04/22 10/04/22 History Allergies Allergy/AdvReac Type Severity Reaction Status Date / Time Penicillins Allergy throat Verified 10/04/22 13:27 Swelling Sulfa (Sulfonamide Allergy throat Verified 10/04/22 13:27 Antibiotics) Swelling
[2022-10-06] MEDS ORDERED: LIDOCAINE 1% (10MG/ML) FOR IV START INTRADERMA PRN (07:56)
[2022-10-06] MEDS ORDERED: LACTATED RINGERS 1,000 ML IV SCH (07:56)
[2022-10-06 08:14] VITALS: RESP 16; TEMP 98.2
[2022-10-06] MEDS ORDERED: KETOROLAC 15 MG/ML 1 ML VIAL ONE (08:32)
[2022-10-06 08:34] LABS: Glucose,Whole Blood 81 mg/dL (70-110)
[2022-10-06] MEDS ORDERED: KETOROLAC 15 MG/ML 1 ML VIAL IVP ONE (08:39)
[2022-10-06] MEDS ORDERED: LIDOCAINE 2% INJ 20 MG/ML (2 ML VIAL) ONE (08:46)
[2022-10-06] MEDS ORDERED: PROPOFOL 10 MG/ML 20 ML VIAL IV ONE (08:46)
[2022-10-06 09:27] VITALS: PULSE 80
[2022-10-06 09:41] VITALS: BP 120/59
--- NOTE | 2022-10-06 09:51 | P.PCN ---
Date of Procedure: 10/06/22 Description of Procedure: PREOPERATIVE DIAGNOSIS: Gastroesophageal reflux disease. Epigastric abdominal pain. Status post sleeve gastrectomy. Morbid obesity due to excess calories, BMI 49.3 POSTOPERATIVE DIAGNOSIS: Gastroesophageal reflux disease. Epigastric abdominal pain. Erosive esophagitis, chronic. Diaphragmatic hiatal hernia without obstruction. Chronic superficial gastritis. Status post sleeve gastrectomy. Morbid obesity due to excess calories, BMI 49.3 OPERATION: Esophagogastroduodenoscopy with cold forceps biopsies along the antrum and duodenum SURGEON: Liliam Sloan MD ANESTHESIA: MAC. INDICATIONS: The patient is a 52-year-old male who presents with gastroesophageal reflux disease, a history of sleeve gastrectomy with abdominal pain. He is over 5 years out from her bariatric procedure. Benefits and risks of the procedure were described. Informed consent was obtained. DESCRIPTION: The patient was brought into the endoscopy suite and laid in the left lateral decubitus position. An Olympus gastroscope was passed along the posterior oropharynx down to the distal esophagus where the squamocolumnar junction was at 35 centimeters from the incisors remarkable for chronic erosive esophagitis, LA grade A without ulceration. The stomach was entered where he had a 3-cm hiatal h ernia with a diaphragmatic hiatus found at 38 cm. The sleeve reservoir moderately large allowing easy retroflexion of the scope to view the lower esophageal valve. Chronic gastritis albeit mild was found along the antrum with cold biopsies obtained. The first through third portion of the duodenum was examined and unremarkable. The scope again had easily retroflexed along the antrum. The stomach was desufflated. The patient tolerated the procedure well. FINDINGS: No acute ulceration found along her sleeve. No corkscrewing sleeve gastrectomy. Squamocolumnar junction at 35 cm from the incisors. Diaphragmatic hiatus at 38 cm. Large gastric reservoir with prior history of sleeve gastrectomy due to stretching allowing easy retroflexion of the gastroscope to view the lower esophageal valve. Hiatal hernia 3 cm, fixed. LA grade A erosive esophagitis. No active duodenitis. Chronic gastritis. RECOMMENDATIONS: Upper endoscopy as needed. May benefit from antireflux operation. Continue with current therapy.
--- NOTE | 2022-10-06 09:55 | P.PCN ---
Date of Procedure: 10/06/22 Description of Procedure: PREOPERATIVE DIAGNOSIS: Colonoscopy screening POSTOPERATIVE DIAGNOSIS: Tubular adenoma ascending colon Tubular adenoma transverse colon Tubular adenoma descending colon Sigmoid diverticulosis Internal hemorrhoids, grade 2 OPERATION: Colonoscopy to the ileocecal valve and appendiceal orifice, cecum Colonoscopy with hot snare polypectomy SURGEON: Liliam Sloan MD. ANESTHESIA: MAC. INDICATIONS: The patient is an 52-year-old male who presents for colonoscopy screening. B enefits and risks were described and informed consent was obtained. DESCRIPTION OF PROCEDURE: The patient had undergone Sutab prep. The patient had been brought into the operating room and laid in the left lateral decubitus position. After adequate intravenous sedation, the rectum was examined with 2% lidocaine jelly. The prostate was unremarkable. External hemorrhoids were encountered. The rectal tone was within normal limits. No lesions were palpated in the rectal vault. An Olympus colonoscope was advanced until the cecum, ileocecal valve and appendiceal orifice were clearly viewed. The prep was excellent. Sigmoid diverticulosis was encountered. Colonic polyps were found and removed. No evidence of focal colitis was found. Retroflexion of the scope demonstrated grade 2 internal hemorrhoids without active bleeding or inflammation. The colon was desufflated. The patient had tolerated the procedure well. Withdrawal time was over 6 minutes. FINDINGS: Aronchick preparation quality scale 1 (1-5) Internal hemorrhoids, grade 2 External hemorrhoids, grade 2. No arteriovenous malformations. Sigmoid diverticulosis, moderate Removal of 5 polyps: - Snare polypectomy ascending colon x 2, 5 to 8 mm tubulovillous adenoma polyp. - Snare polypectomy descending colon x 2, 4 to 6 mm flat villous adenoma polyp. - Snare polypectomy transverse colon, 4 mm flat villous adenoma polyp. No focal colitis. RECOMMENDATIONS: Given severity of tubular adenomas, recommend repeat colonoscopy 3 years, 2025 Plan - Discharge Summary Discharge Rx Participant: No New Discharge Prescriptions: Continue Atomoxetine HCl [Strattera] 80 mg PO 2200 Cholecalciferol [Vitamin D3 (25 Mcg = 1000 Iu)] 10,000 unit PO DAILY Calcium Carbonate [Calcium] 600 mg PO BID #60 tablet Benazepril HCl 40 mg PO 2200 traMADol HCL [Ultram] 50 mg PO Q6HR PRN PRN Reason: Pain amLODIPine [Norvasc] 10 mg PO 2200 Aspirin [Adult Low Dose Aspirin EC] 81 mg PO DAILY hydroCHLOROthiazide [Hydrodiuril] 25 mg PO 2199 HYDROcodone/APAP 5-325MG [[place] 5-325] 1 tab PO Q4HR PRN 3 Days #18 tab PRN Reason: Pain Metoprolol Succinate (ER) [Toprol XL] 200 mg PO 0 Omeprazole 40 mg PO DAILY Magnesium 800 mg PO DAILY Potassium Citrate 3 tab PO 0 [place]-3 Fatty Acids [[place]-3] 2,000 mg PO DAILY Sildenafil Citrate 100 mg PO 0 Multivitamins, Thera [Multivitamin (formulary)] 1 tab PO DAILY Discharge Medication List Atomoxetine HCl [Strattera] 80 mg PO 219907/30/14 [History] Cholecalciferol [Vitamin D3 (25 Mcg = 1000 Iu)] 10,000 unit PO DAILY 07/30/14 [History] Calcium Carbonate [Calcium] 600 mg PO BID #60 tablet 12/23/15 [Rx] Benazepril HCl 40 mg PO 219901/28/16 [History] Aspirin [Adult Low Dose Aspirin EC] 81 mg PO DAILY 10/13/17 [History] amLODIPine [Norvasc] 10 mg PO 219910/13/17 [History] hydroCHLOROthiazide [Hydrodiuril] 25 mg PO 219910/13/17 [History] traMADol HCL [Ultram] 50 mg PO Q6HR PRN 10/13/17 [History] HYDROcodone/APAP 5-325MG [[place] 5-325] 1 tab PO Q4HR PRN 3 Days #18 tab 12/08/17 [Rx] Metoprolol Succinate (ER) [Toprol XL] 200 mg PO 219910/01/20 [History] Magnesium 800 mg PO DAILY 10/04/22 [History] Multivitamins, Thera [Multivitamin (formulary)] 1 tab PO DAILY 10/04/22 [History] [place]-3 Fatty Acids [[place]-3] 2,000 mg PO DAILY 10/04/22 [History] Omeprazole 40 mg PO DAILY 10/04/22 [History] Potassium Citrate 3 tab PO 219910/04/22 [History] Sildenafil Citrate 100 mg PO 219910/04/22 [History] [facility]Ref[facility] [place] [facility] 2:00 pm Patient Instructions/Handouts: *Surgery [facility] - (Anesthesia) Endoscopy Discharge Instructions, Hiatal Hernia (DC), Diverticulosis (DC), Colorectal Polyps (GEN), Diverticulosis Diet (GEN), Colonoscopy (DC), Upper Endoscopy (DC) Activity/Diet/Wound Care/Special Instructions: Repeat colonoscopy 3 years2025 Discharge Disposition: HOME SELF-CARE
[2022-10-06 11:38] LABS: HCT 45.1 % (39.0-53.0); HGB 15.7 gm/dL (13.0-17.5); MCH 32.8 pg (25.0-35.0); MCHC 34.9 g/dL (31.0-37.0); MCV 93.8 fL (80.0-100.0); Mean Platelet Volume 7.9; Platelet Count 164 k/uL (150-450); RDW 12.6 % (11.5-15.5); WBC 6.5 k/uL (3.8-10.6)
[2022-10-06 11:48] LABS: ALT 40 U/L (4-49); AST 35 U/L (17-59); African American GFR (CKD) >90 (>60 ml/min/1.73 sqM); Albumin 4.4 g/dL (3.5-5.0); Alkaline Phosphatase 60 U/L (38-126); Anion Gap 7 mmol/L; Blood Urea Nitrogen 19 mg/dL (9-20); Calcium 9.3 mg/dL (8.4-10.2); Carbon Dioxide 30 mmol/L (22-30); Chloride 102 mmol/L (98-107); Glucose 87 mg/dL (74-99); Non-African American GFR(CKD) 86 (>60 ml/min/1.73 sqM); Phosphorus 3.4 mg/dL (2.5-4.5); Potassium 3.5 mmol/L (3.5-5.1); Sodium 139 mmol/L (137-145); Total Bilirubin 0.8 mg/dL (0.2-1.3)
[2022-10-06 12:04] LABS: Partial Thromboplastin Time 26.2 sec (22.0-30.0); Prothrombin Time 10.6 sec (9.0-12.0)
[2022-10-06 19:25] LABS: % Iron Saturation 22.94 (15.00-50.00); Chol/HDL Ratio 4.62 Ratio; Ferritin 56.6 ng/mL (22.0-322.0); Iron 105 ug/dL (65-175); LDL Cholesterol,Calculated 80.6 mg/dL (0.0-131.0); Prealbumin 27.6 mg/dL (18.0-42.0); Total Iron Binding Capacity 458 ug/dL (228-460)
[2022-10-07 15:26] LABS: Zinc, Serum 81 ug/dL (60-130)
[2022-10-10 07:15] LABS: Vit B1(Thiamine) 97 ug/L (38-122)
[2022-10-10 07:46] LABS: Vitamin A 80 ug/dL (38-106)
[2022-10-11 01:09] LABS: Selenium 133 mcg/L (63-160)
== END 2022-10-06 11:01 | disposition home or self-care (01) ==
LOC: ORWHC2ENDO 07:53
PROVIDERS: ATTEND Surgery Plastic and Reconstructive Surgery
DX: Z12.11 Encounter for screening for malignant neoplasm of colon (principal); D12.2 Benign neoplasm of ascending colon; D12.4 Benign neoplasm of descending colon; K22.10 Ulcer of esophagus without bleeding; K44.9 Diaphragmatic hernia without obstruction or gangrene; K29.30 Chronic superficial gastritis without bleeding; K64.4 Residual hemorrhoidal skin tags; K57.30 Diverticulosis of large intestine without perforation or abscess without bleeding; J45.909 Unspecified asthma, uncomplicated; G47.30 Sleep apnea, unspecified; I10 Essential (primary) hypertension; K64.1 Second degree hemorrhoids; K29.50 Unspecified chronic gastritis without bleeding; E66.01 Morbid (severe) obesity due to excess calories; Z79.82 Long term (current) use of aspirin; Z68.42 Body mass index [BMI] 45.0-49.9, adult; Z90.89 Acquired absence of other organs; Z98.890 Other specified postprocedural states; Z98.84 Bariatric surgery status; Z90.49 Acquired absence of other specified parts of digestive tract; Z79.899 Other long term (current) drug therapy
CPT/HCPCS: 84255; 84134; 88305; 84425; 80061; 80053; 82607; 82728; 82525; 82746; 83540; 83550; 83735; 84100; 84443; 84590; 84630; 85027; 85610; 85730; 82306; 83970; 83036; 45385; 43239; J1885; J2704; J2001

== ENCOUNTER → 2022-11-09 | Outpatient (CLI) | payer BC ==
[2022-11-09 17:03] VITALS: BP 139/85; PULSE 67; TEMP 98.7; BMI 51.1
--- NOTE | 2022-12-19 05:47 | P.BASOAP ---
Subjective Progress Note Date: 11/09/22 DATE OF SERVICE: 11/09/2022 CHIEF COMPLAINT: Follow-up sleeve gastrectomy. HISTORY OF PRESENT ILLNESS: Emanuel Macias is a pleasant 46-year-old gentleman who is status post sleeve gastrectomy from September 22, 2014. He is 8 years out from his sleeve gastrectomy. His highest weight for 5 feet 10 inches frame was 450 pounds. He has been lost to follow-up. He presents with moderate to severe gastroesophageal reflux disease with his weight gain. He has completed upper endoscopy with finding of hiatal hernia. He reports intermittent troubles with swallowing and epigastric pain. He presents for surgical options. His highest weight for 5 feet 10 inches frame was 450 pounds, BMI 64.7. [place] body weight is 173 pounds. Today he comes in weighing 356 pounds from 332 pounds, 6 years ago. He has gained 24 pounds in 6 years. Lifetime weight loss 94 pounds. Lifetime percent excess weight loss is now reduced to 34%. Body mass index is reduced from 64.7 down to 51.1. He is 183 pounds overweight. PAST MEDICAL HISTORY: 1. Super morbid obesity due to excess calories, BMI 64.7 2. Obstructive sleep apnea. 3. Vitamin D deficiency. 4. Hypertension. 5. Osteoarthritis. 6. Asthma. 7. Gastroesophageal reflux disease. 8. History of colon polyps. 9. Hemorrhoids. 10. History of hypothyroidism. 11. ADHD PAST SURGICAL HISTORY: 1. Colonoscopy. 2. Upper endoscopy. 3. Hemorroidectomy. 4. Uvulopalatoplasty. 5. Laparoscopic cholecystectomy. 6. Sleep study. 7. Status post sleeve gastrectomy. MEDICATIONS: Home Medications Medication Instructions Recorded Confirmed Atomoxetine HCl [Strattera] 80 mg PO 2200 07/30/14 11/09/22 Cholecalciferol [Vitamin D3 (25 10,000 unit PO DAILY 07/30/14 11/09/22 Mcg = 1000 Iu)] Benazepril HCl 40 mg PO 2200 01/28/16 11/09/22 Aspirin [Adult Low Dose Aspirin EC] 81 mg PO DAILY 10/13/17 11/09/22 amLODIPine [Norvasc] 10 mg PO 0 10/13/17 11/09/22 hydroCHLOROthiazide [Hydrodiuril] 25 mg PO 10/13/17 11/09/22 traMADol HCL [Ultram] 50 mg PO Q6HR PRN 10/13/17 11/09/22 Metoprolol Succinate (ER) [Toprol 200 mg PO 219910/01/20 11/09/22 XL] Magnesium 800 mg PO DAILY 10/04/22 11/09/22 Multivitamins, Thera [Multivitamin 1 tab PO DAILY 10/04/22 11/09/22 (formulary)] [place]-3 Fatty Acids [[place]-3] 2,000 mg PO DAILY 10/04/22 11/09/22 Omeprazole 40 mg PO DAILY 10/04/22 11/09/22 Potassium Citrate 3 tab PO 219910/04/22 11/09/22 Sildenafil Citrate 100 mg PO 219910/04/22 11/09/22 Previous Rx's Medication Instructions Recorded Calcium Carbonate [Calcium] 600 mg PO BID #60 tablet 12/23/15 HYDROcodone/APAP 5-325MG [[place] 1 tab PO Q4HR PRN 3 Days #18 tab 12/08/17 5-325] ALLERGIES: Allergies Allergy/AdvReac Type Severity Reaction Status Date / Time Penicillins Allergy throat Verified 10/06/22 08:16 Swelling Sulfa (Sulfonamide Allergy throat Verified 10/06/22 08:16 Antibiotics) Swelling SOCIAL HISTORY: History of past tobacco abuse. His is at bedside. FAMILY HISTORY: Had an uncle with colon cancer. No family history of esophageal or stomach cancer. He has a family history of early stroke in his mother. REVIEW OF SYSTEMS: CONSTITUTIONAL: His highest weight for 5 feet 10 inches frame was 450 pounds, BMI 64.7. [place] body weight is 173 pounds. He has lost 118 pound in the last past. RESPIRATORY: He does report improvement in his sleep with his history of sleep apnea. CARDIOVASCULAR: For his hypertension, he does report improvement in his blood pressure although he is taking two to three different blood pressure medications. MUSCULOSKELETAL: He also noted improvement of his lower back pain including bilateral knee pain. GASTROINTESTINAL: He also reports gastroesophageal reflux disease has increased since his weight gain. ENDOCRINE: New onset hypothyroidism. He has been started on thyroid medication. HEENT: No active trouble with vision or hearing. ENDOCRINE: No diabetes or hypothyroidism. NEURO: No reports of stroke or seizure disorder. PSYCH: No reports of depression or suicidal ideation. Has ADHD HEMATOLOGIC: Denies any easy bruising or bleeding or coagulopathy in his family. PHYSICAL EXAM: VITAL SIGNS: 5 foot 10, 356 pounds. Body mass index of 51.1 Vital Signs Temp 98.7 F 11/09/22 17:00 Pulse 67 11/09/22 17:00 Resp BP 139/85 11/09/22 17:00 Pulse Ox FiO2 GENERAL: Well-developed male in no acute distress. ABDOMEN: Soft, nontender, nondistended. No palpable incisional hernias. Pannus extends over pubis over 8 cm, mild hyperemic consistent with panniculitis. Weight of pannus of over 15 pounds. MUSCULOSKELETAL: No clubbing, cyanosis, or edema. HEENT: No scleral icterus. Extraocular movements grossly intact. Moist buccal mucosa. Head is atraumatic, normocephalic. Hears conversational speech. No nasal drainage. NECK: Supple without lymphadenopathy. CHEST: Nonlabored respirations. Non-labored respirations and equal bilateral excursions. CARDIOVASCULAR: Regular rate. NEURO: No focal or lateralizing signs. Cranial nerves II to XII grossly intact. PSYCH: Appropriate affect. Alert and oriented to person, place and time. LABS: Reviewed. Triglycerides elevated. Elevated Vitamin D and folate. TSH 2.060 EGD FINDINGS: No acute ulceration found along her sleeve. No corkscrewing sleeve gastrectomy. Squamocolumnar junction at 35 cm from the incisors. Diaphragmatic hiatus at 38 cm. Large gastric reservoir with prior history of sleeve gastrectomy due to stretching allowing easy retroflexion of the gastroscope to view the lower esophageal valve. Hiatal hernia 3 cm, fixed. LA grade A erosive esophagitis. No active duodenitis. Chronic gastritis. COLON FINDINGS: Aronchick preparation quality scale 1 (1-5) Internal hemorrhoids, grade 2 External hemorrhoids, grade 2. No arteriovenous malformations. Sigmoid diverticulosis, moderate Removal of 5 polyps: - Snare polypectomy ascending colon x 2, 5 to 8 mm tubulovillous adenoma polyp. - Snare polypectomy descending colon x 2, 4 to 6 mm flat villous adenoma polyp. - Snare polypectomy transverse colon, 4 mm flat villous adenoma polyp. No focal colitis. REPORTS: Cardiac stress test completed Jul 2022 and was negative for ischemic changes. Final Pathologic Diagnosis A. DUODENUM, BIOPSY: Benign small bowel mucosa with intact villous architecture, negative for histopathologic abnormality. B. GASTRIC ANTRUM, BIOPSY: Chronic gastritis with mild activity and mucosal reactive changes. Helicobacter pylori organisms are not identified on routine H+E sections. C. ASCENDING COLON, BIOPSY: Tubular adenoma and fragments of benign polypoid colonic mucosa. D. DESCENDING COLON, BIOPSY: Tubular adenomas. ASSESSMENT: 1. Morbid obesity due to excess calories. 2. Body mass index reduced from 64.7 down to 51.1 3. Status post sleeve gastrectomy. 4. Weight gain following sleeve gastrectomy. 5. Massive weight loss of 139 pounds now 94 pounds 6. Hypothyroidism, now controlled. 7. Hypotestosteronism. 8. Chronic fatigue. 9. History obstructive sleep apnea. 10. Panniculitis despite medical treatment. 11. Hypertensive heart disease 12. Hypertriglyceridemia. 13. Vitamin D and folate excess 14. Zinc deficiency. 15. ADHD PLAN: 1. Recommend hold his Vitamin D as he has vitamin D excess 2. Recommend curtail folate supplement 3. He has symptomatic hiatal hernia despite medications. Recommend hiatal hernia repair. He is elevated risk due to prior sleeve gastrectomy and morbid obesity. 4. Inpatient hospitalization over 2 nights advised following his repair. 5. Repeat colonoscopy in 3 years, 2025 Objective - Vital Signs Vital signs: Vital Signs Temp 98.7 F 11/09/22 17:00 Pulse 67 11/09/22 17:00 Resp BP 139/85 11/09/22 17:00 Pulse Ox FiO2 Assessment/Plan Plan: Date: 11/09/22 Initial Weight: 200.987 kg Initial BMI: 63.6 Current Weight: 161.66 kg Current BMI: 51.1 Type of Surgery: Total Volume in Band: Previous Volume: Volume Removed: Volume Added: Band Size:
== END ==
LOC: BARWHC3 16:31
PROVIDERS: ATTEND Surgery Plastic and Reconstructive Surgery
DX: E66.01 Morbid (severe) obesity due to excess calories (principal); Z88.0 Allergy status to penicillin; Z88.2 Allergy status to sulfonamides; Z79.82 Long term (current) use of aspirin; Z79.899 Other long term (current) drug therapy; Z98.84 Bariatric surgery status; Z68.44 Body mass index [BMI] 60.0-69.9, adult; G47.33 Obstructive sleep apnea (adult) (pediatric); E55.9 Vitamin D deficiency, unspecified; I10 Essential (primary) hypertension; M19.90 Unspecified osteoarthritis, unspecified site; J45.909 Unspecified asthma, uncomplicated; K21.9 Gastro-esophageal reflux disease without esophagitis; Z79.890 Hormone replacement therapy; E03.9 Hypothyroidism, unspecified; F90.9 Attention-deficit hyperactivity disorder, unspecified type; E78.1 Pure hyperglyceridemia; Z79.891 Long term (current) use of opiate analgesic
CPT/HCPCS: 99211

== ENCOUNTER → 2023-02-13 | Outpatient (CLI) | payer BC ==
--- NOTE | 2023-02-13 09:18 | XR ---
EXAMINATION TYPE: XR knee complete LT DATE OF EXAM: 02/13/2023 9:01 AM INDICATION: Patient age:Male; 52 years old; Reason for study: M23.92 UNSPECIFIED INTERNAL DERANGEMENT OF LEFT KN; [facility]. COMPARISON: None. TECHNIQUE: The Left knee(s) was examined in Frontal, lateral and oblique projections. FINDINGS: Protuberance of the tibial tubercle. Finding could represent remote tibial tubercle injur y. No evidence of any acute osseous pathology, soft tissue swelling, or joint effusion is noted. Tricompartmental osteophyte formation involving the femoral condyles, tibial plateau and patella. Mi ld joint space narrowing. IMPRESSION: 1. No acute osseous pathology. 2. Mild to moderate tricompartmental osteoarthritic changes.
== END | disposition home or self-care (01) ==
LOC: RADXRMAIN 08:48
PROVIDERS: ATTEND Family Medicine
DX: M17.12 Unilateral primary osteoarthritis, left knee (principal); M23.92 Unspecified internal derangement of left knee

== ENCOUNTER 2023-02-27 08:00 | Inpatient (IN) | payer BC ==
[~2023-02-27 08:00] MED LIST changes: +DEXAMETHASONE SOD PHOSPHATE 4 MG/ML 1 ML VIAL IV ONE; +ENOXAPARIN 40 MG/0.4 ML SYRINGE SQ PRN; +HYDROmorphone 0.5 MG/0.5 ML SYRINGE IVP PRN; -LACTATED RINGERS 1,000 ML IV SCH; +LIDOCAINE 1% (10MG/ML) FOR IV START INTRADERMA PRN; +ONDANSETRON 4 MG/2 ML VIAL IVP ONE; +PANTOPRAZOLE 40 MG/10 ML VIAL IVP PRN; +ceFAZolin 3 GM in SODIUM CHLORIDE 0.9% 100 ML IVPB PRN; +droPERidol 5 MG/2 ML VIAL IVP PRN
--- NOTE | 2023-02-27 08:12 | P.GSHP ---
History of Present Illness H&P Date: 02/27/23 CHIEF COMPLAINT: Paraesophageal hiatal hernia with gastroesophageal reflux disease. HISTORY OF PRESENT ILLNESS: The patient is a 52-year-old male who presents with symptomatic paraesophageal hiatal hernia over one year with gastroesophageal reflux disease. She has completed upper endoscopy workup. Now she presents for surgical intervention. PAST MEDICAL HISTORY: Please see list. PAST SURGICAL HISTORY: Please see list. MEDICATIONS: Please see list. ALLERGIES: Please see list. SOCIAL HISTORY: No illicit drug use FAMILY HISTORY: No reports of Crohn disease or ulcerative colitis. REVIEW OF ORGAN SYSTEMS: CONSTITUTIONAL: No reports of fevers or chills. GI: Denies any blood in stools or constipation. PHYSICAL EXAM: VITAL SIGNS: Stable GENERAL: Well-developed pleasant and in no acute distress. HEENT: No scleral icterus. Extraocular movements grossly intact. Moist buccal mucosa. NECK: Supple without lymphadenopathy. CHEST: Unlabored respirations. Equal bilateral excursions. CARDIOVASCULAR: Regular rate and rhythm. Distal 2+ pulses. ABDOMEN: Soft, nondistended. No peritoneal signs. MUSCULOSKELETAL: No clubbing, cyanosis, or edema. SKIN: Well-perfused. Good skin turgor. REPORTS: Upper endoscopy demonstrates paraesophageal hiatal hernia REPORTS: Cardiology risk assessment obtained. Please see chart. ASSESSMENT: 1. Diaphragmatic paraesophageal hiatal hernia with severe gastroesophageal reflux disease. PLAN: 1. Recommend proceeding with a robotic paraesophageal hiatal hernia with possible mesh. 2. Benefits and risks of surgical intervention was discussed including possibility of open technique. 3. Inpatient hospitalization recommended of 2 nights 4. DVT prophylaxis. 5. Antibiotic prophylaxis. 6. He has also completed a very low caloric high-protein diet to address underlying hepatomegaly. 7. Non narcotic pain management including abdominal wall block described 8. Blood sugar glucose described. 9. Weight loss management described. 10. He is elevated risk for complications due to super morbid obesity and comorbidities Past Medical History Past Medical History: Asthma, GERD/Reflux, Hypertension, Osteoarthritis (OA), Pneumonia, Sleep Apnea/CPAP/BIPAP Additional Past Medical History / Comment(s): hiatal hernia-causes dysphagia @times, hx. of colon polyps, last time one was pre-cancerous, uses CPAP History of Any Multi-Drug Resistant Organisms: None Reported Past Surgical History: Adenoidectomy, Appendectomy, Bariatric Surgery, Cholecystectomy, Orthopedic Surgery, Tonsillectomy Additional Past Surgical History / Comment(s): Left ankle surgery, removal of uvula (removed of part of tongue and palate), RICARDO KNEE ARTHROSCOPY, EGD , COLONOSCOPY. gastric sleeve 2015, ricardo knee sugery, PRIOR BACK INJECTIONS Past Anesthesia/Blood Transfusion Reactions: Previous Problems w/ Anesthesia Additional Past Anesthesia/Blood Transfusion Reaction / Comment(s): Can be severely aggressive/violent coming out of anaesthesia. "I hurt a nurse" when coming out. (with bariatric surgery and colonoscopy) Smoking Status: Never smoker - Past Family History Mother Family Medical History: Cancer Additional Family Medical History / Comment(s): uterine and bone, skin cancer, Medications and Allergies Home Medications Medication Instructions Recorded Confirmed Type Atomoxetine HCl [Strattera] 80 mg PO 0 07/30/14 02/20/23 History Calcium Carbonate [Calcium] 600 mg PO BID #60 tablet 12/23/15 02/20/23 Rx Benazepril HCl 40 mg PO 0 01/28/16 02/20/23 History Aspirin [Adult Low Dose Aspirin EC] 81 mg PO DAILY 10/13/17 02/20/23 History amLODIPine [Norvasc] 10 mg PO 0 10/13/17 02/20/23 History hydroCHLOROthiazide [Hydrodiuril] 25 mg PO 2200 10/13/17 02/20/23 History traMADol HCL [Ultram] 50 mg PO Q6HR PRN 10/13/17 02/20/23 History HYDROcodone/APAP 5-325MG [[place] 1 tab PO Q4HR PRN 3 Days #18 tab 12/08/17 02/20/23 Rx 5-325] Metoprolol Succinate (ER) [Toprol 200 mg PO 0 10/01/20 02/20/23 History XL] Magnesium 800 mg PO DAILY 10/04/22 02/20/23 History Multivitamins, Thera [Multivitamin 1 tab PO DAILY 10/04/22 02/20/23 History (formulary)] [place]-3 Fatty Acids [[place]-3] 2,000 mg PO DAILY 10/04/22 02/20/23 History Omeprazole 40 mg PO 2200 10/04/22 02/20/23 History Potassium Citrate 3 tab PO 2200 10/04/22 02/20/23 History Sildenafil Citrate 100 mg PO 0 10/04/22 02/20/23 History Allergies Allergy/AdvReac Type Severity Reaction Status Date / Time Penicillins Allergy throat Verified 02/20/23 11:37 Swelling Sulfa (Sulfonamide Allergy throat Verified 02/20/23 11:37 Antibiotics) Swelling
[2023-02-27] MEDS: CHLORHEXIDINE GLUCONATE 15 ML CUP MUCOUS MEM PRN ×2 (12:32→14:54)
[2023-02-27] MEDS: LACTATED RINGERS 1,000 ML IV SCH (12:33)
[2023-02-27] MEDS ORDERED: GLYCOPYRROLATE 0.2 MG/ML 2 ML VIAL ONE (14:50)
[2023-02-27] MEDS ORDERED: MIDAZOLAM 2 MG/2 ML VIAL ONE (14:50)
[2023-02-27] MEDS ORDERED: PROPOFOL 10 MG/ML 20 ML VIAL IV ONE (14:50)
[2023-02-27] MEDS ORDERED: ROCURONIUM 10 MG/ML (5 ML VIAL) IV ONE (14:50)
[2023-02-27] MEDS ORDERED: fentaNYL (PF) 50 MCG/ML 2 ML AMP ONE (14:50)
[2023-02-27] MEDS ORDERED: SUCCINYLCHOLINE CHLORIDE 200 MG/10 ML VIAL IV ONE (14:50)
[2023-02-27] MEDS ORDERED: NEOSTIGMINE 1 MG/ML 10 ML VIAL ONE (14:50)
[2023-02-27] MEDS ORDERED: LIDOCAINE 2% INJ 20 MG/ML (2 ML VIAL) ONE (14:50)
[2023-02-27] MEDS ORDERED: diphenhydrAMINE 50 MG/ML 1 ML VIAL ONE (14:50)
[2023-02-27] MEDS ORDERED: KETAMINE 10 MG/ML 20 ML VIAL ONE (14:50)
[2023-02-27] MEDS ORDERED: LIDOCAINE 1%-EPI 1:100,000 50 ML VIAL SQ ONE (15:25)
[2023-02-27] MEDS ORDERED: LACTATED RINGERS 1,000 ML IV ONE (16:37)
[2023-02-27] MEDS ORDERED: NALOXONE 0.4 MG/ML 1 ML VIAL IV PRN (16:48)
[2023-02-27] MEDS ORDERED: diphenhydrAMINE 50 MG/ML 1 ML VIAL IVP PRN (16:49)
[2023-02-27] MEDS ORDERED: HYDROmorphone 1 MG/ML 1 ML SYRINGE IVP PRN (16:49)
--- NOTE | 2023-02-27 17:01 | P.OP ---
Date of Procedure: 02/27/23 Description of Procedure: SURGEON: HANS KUMAR MD PREOPERATIVE DIAGNOSES: 1. Symptomatic paraesophageal diaphragmatic hiatal hernia. 2. Gastroesophageal reflux disease. 3. Hypertensive heart disease 4. Epigastric abdominal pain 5. Atypical chest 6. Morbid obesity due to excess calories, BMI 49.7 7. Status post sleeve gastrectomy 8. Depressive disorder 9. Obstructive sleep apnea 10. ADD with ADHD POSTOPERATIVE DIAGNOSES: 1. Paraesophageal midline diaphragmatic hernia, 5 cm, with incarceration. 2. Gastroesophageal reflux disease. 3. Hypertensive heart disease 4. Epigastric abdominal pain 5. Atypical chest 6. Morbid obesity due to excess calories, BMI 49.7 7. Status post sleeve gastrectomy 8. Depressive disorder 9. Obstructive sleep apnea 10. ADD with ADHD OPERATION: 1. Robotic-assisted da Brien Xi laparoscopic repair of recurrent incarcerated paraesophageal hiatal hernia, 5 x 4 cm, with Canjilon Biopatch A 8 x 8 cm. 2. Intraoperative esophagogastroduodenoscopy 3. Excision of posterior mediastinal mass, 4 x 4 cm ANESTHESIA: General with local anesthetic. ESTIMATED BLOOD LOSS: 5 mL SPECIMENS REMOVED: None COMPLICATIONS: None. Condition: stable Disposition: floor FINDINGS: 1. Midline incarcerated paraesophageal hiatal hernia 5 x 4 cm 2. Intraoperative upper endoscopy confirms complete closure of hiatal hernia from Hill grade 3 to Hill grade 1 3. Intraesophageal length over 2 cm 4. Mediastinal mass causing compression of the distal esophagus INDICATIONS: The patient is a 52-year-old male who presents with gastroesophageal reflux disease poorly controlled despite medications, epigastric and atypical chest pain and a symptomatic diaphragmatic hiatal hernia. Preoperative workup including upper endoscopy demonstrated hiatal hernia. Given the severity of symptoms, the patient had elected for surgical intervention. Benefits and risks including bleeding, infection, recurrence, dysphagia, injury to the lung, need for further surgery was described at length. Informed consent was obtained. DESCRIPTION: The patient was brought into the operating room and placed in supine position. Preoperatively the patient had received heparin subcutaneously for DVT prophylaxis. After general induction, the abdomen was prepped and draped in standard sterile fashion. The patient had previously voided prior to coming to the operating room. Ioban draping was placed along the abdomen. A timeout protocol was confirmed with the surgical team, for which the patient's name, procedure to be performed including DVT prophylaxis with bilateral SCDs, and preoperative antibiotics were also confirmed. A robotic da Brien Xi system was prepped and primed. At 12 cm from the xiphoid to just below the umbilicus, proposed port sites were marked with indelible marker along the left axillary line, left mid-clavicular line with each ports were marked 10 cm from each other. A 5 mm 0 degrees laparoscopic trocar entry was performed along the left upper quadrant. The abdomen was insufflated to 15 mmHg pressure was tolerated well. Diagnostic laparoscopy demonstrated no injury to bowel, viscera, or mesentery. No injury had occurred to the small bowel or viscera. The liver was without hepatomegaly from two-week high-protein low-carb diet. Previous trochar sites from cholecystectomy were used. Next, one 8 mm robotic port was placed along the right upper abdomen. An 8-mm port was were placed along the right lateral lateral abdominal wall. The camera 8-mm port was maintained along the epigastrium. Another 12 mm port was placed along the left upper abdominal wall after exchanging the 5 mm port. Please note that the ports were placed at least 20 cm away from the target anatomy. Care was taken to check that each robotic arm were safely away from collision with the bed or the patient. At the epigastrium, a medium sized Eleazar liver retractor was placed under direct visualization with the Iron Billboard Installer placed under the right shoulder of the patient. All robotic arms were used. The patient was repositioned in reverse Trendelenburg position at 21-degrees after lowering the bed. The robot was docked above the right side of the patient. Using a grasper for arm 3, a grasper for arm 1, including vessel sealer for arm 2, the robotic system was docked and primed as described. Instruments were interchanged by the or assistant. I had sat at the console. The gastrohepatic ligament was cleaved using a vessel sealer. Features of prior hiatal hernia repair was identified. Next, the phrenoesophageal ligament was mobilized and the distal esophagus was mobilized circumferentially. The left and right crura was identified. Circumferentially, the hernia sac was excised and brought into the peritoneal cavity. Moderate dissection into the mediastinum was performed to release the esophagus into the abdominal cavity. The paraesophageal hiatal hernia sac was also incised and divided from the esophagus. Mediastinal mass 4 x 4 centimeters was found compressing along the distal esophagus and resected using vessel sealer. Care was taken to avoid any gastrotomy. The measured defect was consistent with 5 cm axial length and 4 cm in width. After dissection, the distal esophagus of 2+ cm was brought into the abdominal cavity. Once the hiatus and crura was dissected, 2-0 VLOC nonabsorbable suture was placed to reapproximate the diaphragmatic hiatus posteriorly. To buttress the repair, a Canjilon Biopatch A was prepared along the back table and cut in half of a bazzi-hole fashion as to reinforce the repair as an underlay. The mesh was placed along the crural repair and tagged using horizontal mattress sutures using 2-0 VLOC. An Olympus gastroscope was passed through posterior oropharynx. Prior sleeve gastrectomy was within normal limits with patent pylorus and extension into duodenum. The stomach had been desufflated. No evidence of leaks were found of the esophagus or stomach. The GI tract with desufflated This concluded the endoscopic portion of the case. The robot was undocked from the patient. I re-scrubbed into the case. All instruments and pneumoperitoneum and specimens were evacuated from the abdominal cavity. Incisions were reapproximated using 4-0 Monocryl in an interrupted subcuticular fashion. Liquid glue was applied to the skin. Local anesthetic was infiltrated in all wounds for postop analgesia. At the end of the procedure, needle, sponge, and instrument count was verified correct by the health physics technician. The patient had tolerated the procedure well and was taken to the postanesthesia unit in stable condition. Plan - Discharge Summary Discharge Rx Participant: Yes New Discharge Prescriptions: New bisacodyL [Dulcolax] 5 mg PO DAILY PRN #10 tab PRN Reason: Constipation Omeprazole [PriLOSEC] 40 mg PO DAILY #30 cap Ondansetron Odt [Zofran Odt] 4 mg PO Q8HR PRN #9 tab PRN Reason: Nausea Simethicone 40 mg/0.6 ml Drops [Mylicon Drops] 40 mg PO PCHS PRN #30 ml PRN Reason: Gas Acetaminophen Tab [Tylenol Tab] 1,000 mg PO Q6HR PRN #30 tablet PRN Reason: Pain Continue Atomoxetine HCl [Strattera] 80 mg PO 2200 Calcium Carbonate [Calcium] 600 mg PO BID #60 tablet Benazepril HCl 40 mg PO 2200 traMADol HCL [Ultram] 50 mg PO Q6HR PRN PRN Reason: Pain amLODIPine [Norvasc] 10 mg PO 0 Aspirin [Adult Low Dose Aspirin EC] 81 mg PO DAILY hydroCHLOROthiazide [Hydrodiuril] 25 mg PO 2200 HYDROcodone/APAP 5-325MG [[place]rockway 5-325] 1 tab PO Q4HR PRN 3 Days #18 tab PRN Reason: Pain Metoprolol Succinate (ER) [Toprol XL] 200 mg PO 0 Omeprazole 40 mg PO 2200 Magnesium 800 mg PO DAILY Potassium Citrate 3 tab PO 2200 Essex-3 Fatty Acids [Es[place]-3] 2,000 mg PO DAILY Sildenafil Citrate 100 mg PO 2199 Multivitamins, Thera [Multivitamin (formulary)] 1 tab PO DAILY Discharge Medication List Atomoxetine HCl [Strattera] 80 mg PO 219907/30/14 [History] Calcium Carbonate [Calcium] 600 mg PO BID #60 tablet 12/23/15 [Rx] Benazepril HCl 40 mg PO 219901/28/16 [History] Aspirin [Adult Low Dose Aspirin EC] 81 mg PO DAILY 10/13/17 [History] amLODIPine [Norvasc] 10 mg PO 219910/13/17 [History] hydroCHLOROthiazide [Hydrodiuril] 25 mg PO 219910/13/17 [History] traMADol HCL [Ultram] 50 mg PO Q6HR PRN 10/13/17 [History] HYDROcodone/APAP 5-325MG [[place] 5-325] 1 tab PO Q4HR PRN 3 Days #18 tab 12/08/17 [Rx] Metoprolol Succinate (ER) [Toprol XL] 200 mg PO 219910/01/20 [History] Magnesium 800 mg PO DAILY 10/04/22 [History] Multivitamins, Thera [Multivitamin (formulary)] 1 tab PO DAILY 10/04/22 [History] Essex-3 Fatty Acids [Essex-3] 2,000 mg PO DAILY 10/04/22 [History] Omeprazole 40 mg PO 0 10/04/22 [History] Potassium Citrate 3 tab PO 0 10/04/22 [History] Sildenafil Citrate 100 mg PO 219910/04/22 [History] Acetaminophen Tab [Tylenol Tab] 1,000 mg PO Q6HR PRN #30 tablet 02/27/23 [Rx] Omeprazole [PriLOSEC] 40 mg PO DAILY #30 cap 02/27/23 [Rx] Ondansetron Odt [Zofran Odt] 4 mg PO Q8HR PRN #9 tab 02/27/23 [Rx] Simethicone 40 mg/0.6 ml Drops [Mylicon Drops] 40 mg PO PCHS PRN #30 ml 02/27/23 [Rx] bisacodyL [Dulcolax] 5 mg PO DAILY PRN #10 tab 02/27/23 [Rx] [facility]23 9:00 am Patient Instructions/Handouts: Laparoscopic Hiatal Hernia Repair (GEN) Activity/Diet/Wound Care/Special Instructions: Liquid diet only for 2 weeks until Mar 13 No lifting over 4 pounds in 4 weeks, Mar 30November shower No soaking in bath tubs for 2 weeks, Mar 13 Please notify your surgeon if you develop nausea and vomiting including new onset of abdominal pain. Please ambulate at all times. Use Simethicone, Gas-X, Tylenol and ibuprofen or Aleve scheduled for the next 24-48 hours for best pain relief. Use ice along incisions for the today to prevent swelling. Please open, cut, crush pills larger than the size of a tic tack No carbonated beverages. No straws. Do not remove scopolamine patch for 3 days, if present Avoiding Gas Avoid drinking through a straw. Do not chew gum or tobacco. These actions cause you to swallow air, which produces excess gas in your stomach. Chew with your mouth closed. Avoid any foods that cause stomach gas and distention. These foods include corn, dried beans, peas, lentils, onions, broccoli, cauliflower and any food from the cabbage family. Avoid carbonated drinks, alcohol, citrus and tomato products. Carbonated drinks (sodas) are not allowed for the first six to eight weeks after surgery. After this time you can try them again in small amounts Clear Liquid Diet The first diet after surgery is the clear liquid diet. It includes the following liquids: Apple juice Cranberry juice Grape juice Chicken broth Beef broth Flavored gelatin (Jell-O) Decaf tea and coffee Caffeinated beverages are permitted based on tolerance Popsicles Georgian ice Full Liquid Diet The full liquid diet contains anything on the clear liquid diet, plus: Milk, soy, rice and almond (no chocolate) Cream of wheat, cream of rice, grits Strained creamed soups (no tomato or broccoli) Vanilla and strawberry-flavored ice cream Sherbet Blended, custard styled or whipped yogurt (plain or vanilla only) Vanilla and butterscotch pudding (no chocolate or coconut) Nutritional drinks including Ensure, Boost, Toston Instant Breakfast (no chocolate-flavored) Note: Dairy products, such as milk, ice cream and pudding, may cause diarrhea in some people just after surgery. You may need to avoid milk products. If so, substitute them with lactose-free beverages, such as soy, rice, Lactaid or almond milks. Discharge Disposition: HOME SELF-CARE
[2023-02-27] MEDS: 0.9% NACL WITH KCL 20 MEQ/L 1,000 ML IV SCH (19:00)
[2023-02-27] MEDS: DEXAMETHASONE SOD PHOSPHATE 4 MG/ML 1 ML VIAL IVP SCH (19:01)
[2023-02-27] MEDS: ACETAMINOPHEN IV (For NPO) 1,000 MG in EMPTY BAG 1 BAG IVPB SCH (19:01)
[2023-02-27] MEDS: KETOROLAC 15 MG/ML 1 ML VIAL IVP SCH (19:02)
[2023-02-27] MEDS: ONDANSETRON 4 MG/2 ML VIAL IVP SCH (19:02)
[2023-02-27] MEDS: ALBUTEROL NEBULIZED 2.5 MG/3 ML INHALATION SCH (20:31)
[2023-02-27] MEDS: SIMETHICONE 80 MG CHEWABLE PO SCH (21:58)
[2023-02-27] MEDS: PANTOPRAZOLE 40 MG/10 ML VIAL IV SCH (22:48)
[2023-02-28] MEDS ORDERED: ceFAZolin 3 GM in SODIUM CHLORIDE 0.9% 100 ML IVPB SCH ×2
[2023-02-28] MEDS: DEXAMETHASONE SOD PHOSPHATE 4 MG/ML 1 ML VIAL IVP SCH ×3 (00:41→12:20)
[2023-02-28] MEDS: KETOROLAC 15 MG/ML 1 ML VIAL IVP SCH ×3 (00:42→12:20)
[2023-02-28] MEDS: ACETAMINOPHEN IV (For NPO) 1,000 MG in EMPTY BAG 1 BAG IVPB SCH ×3 (00:43→12:19)
[2023-02-28] MEDS: SIMETHICONE 80 MG CHEWABLE PO SCH ×3 (00:45→12:20)
[2023-02-28] MEDS: 0.9% NACL WITH KCL 20 MEQ/L 1,000 ML IV SCH (01:39)
[2023-02-28] MEDS: ONDANSETRON 4 MG/2 ML VIAL IVP SCH ×3 (01:39→12:20)
[2023-02-28] MEDS: ALBUTEROL NEBULIZED 2.5 MG/3 ML INHALATION SCH ×3 (07:51→14:52)
[2023-02-28] MEDS ORDERED: 0.9% NACL WITH KCL 20 MEQ/L 1,000 ML IV SCH (08:00)
[2023-02-28] MEDS ORDERED: ENOXAPARIN 40 MG/0.4 ML SYRINGE SQ SCH (09:00)
[2023-02-28 09:11] LABS: Basophils # (A) 0.01 X 10*3/uL (0.00-0.10); Basophils % (A) 0.1 %; Eosinophils # (A) 0 X 10*3/uL (0.04-0.35); Eosinophils % (A) 0 %; HCT 44.4 % (39.6-50.0); HGB 14.7 d/dL (13.0-17.0); Lymphocytes # (A) 0.54 X 10*3/uL (0.90-5.00); Lymphocytes % (A) 6.3 %; MCH 31.5 pg (27.0-32.0); MCHC 33.1 d/dL (32.0-37.0); MCV 95.1 FL (80.0-97.0); Mean Platelet Volume 10.8 FL (9.5-12.2); Monocytes # (A) 0.27 X 10*3/uL (0.20-1.00); Monocytes % (A) 3.1 %; NRBC Per 100 WBC 0 X 10*3/uL (0.00-0.01); Neutrophils # (A) 7.77 X 10*3/uL (1.80-7.70); Neutrophils % (A) 89.9 %; Platelet Count 181 X 10*3/uL (140-440); RBC 4.67 X 10*6/uL (4.40-5.60); RDW 12.8 % (11.5-14.5); WBC 8.64 X 10*3/uL (4.50-10.00)
[2023-02-28 09:17] LABS: Blood Urea Nitrogen 23.2 mg/dL (9.0-27.0); Magnesium 1.9 mg/dL (1.5-2.4)
[2023-02-28 09:18] LABS: Calcium 9.2 mg/dL (8.7-10.3); Carbon Dioxide 23.2 mmol/L (21.6-31.8); Chloride 105 mmol/L (96-109); Potassium 4.6 mmol/L (3.5-5.5); Sodium 142 mmol/L (135-145)
[2023-02-28] MEDS: PANTOPRAZOLE 40 MG/10 ML VIAL IV SCH (09:37)
[2023-02-28] MEDS: LACTATED RINGERS 1,000 ML IV SCH (09:38)
--- NOTE | 2023-02-28 11:43 | FL ---
EXAMINATION TYPE: FL UGI DATE OF EXAM: 02/28/2023 10:39 AM CLINICAL INDICATION:Male, 52 years old with history of Post Op Bariatric Surgery; COMPARISON: 04/01/2015 CT TECHNIQUE: Limited single contrast UGI study is performed with Isovue-370. A total of 18 seconds of f luoroscopic time was utilized during procedure and 9 images obtained. DAP: Not reported by machine [id number] [id number] FINDINGS: The stomach demonstrates a postsurgical morphology. No extravasation of contrast identifie d. No evidence of mass or ulcer disease. The duodenal bulb and sweep are unremarkable. IMPRESSION: Postsurgical changes without evidence of contrast extravasation.
[2023-02-28 12:46] VITALS: BP 152/70; PULSE 76; RESP 16; TEMP 98
[2023-02-28 13:49] VITALS: BMI 49.6
[2023-03-01] MEDS ORDERED: bisacodyL 5 MG TABLET.DR PO PRN (08:00)
== END 2023-02-28 15:17 | disposition home or self-care (01) | DRG 327 ==
LOC: 4SSUR 12:01 → 5NMEDONC 17:32
PROVIDERS: ADMIT Surgery Plastic and Reconstructive Surgery; ATTEND Surgery Plastic and Reconstructive Surgery
PROC: 0WBC4ZZ Excision of Mediastinum, Percutaneous Endoscopic Approach (ICD-10-PCS; 2023-02-27)
PROC: 8E0W4CZ Robotic Assisted Procedure of Trunk Region, Percutaneous Endoscopic Approach (ICD-10-PCS; 2023-02-27)
PROC: 0DJ08ZZ Inspection of Upper Intestinal Tract, Via Natural or Artificial Opening Endoscopic (ICD-10-PCS; 2023-02-27)
PROC: 0BUT4JZ Supplement Diaphragm with Synthetic Substitute, Percutaneous Endoscopic Approach (ICD-10-PCS; principal; 2023-02-27 14:00)
DX: K44.0 Diaphragmatic hernia with obstruction, without gangrene (principal); Z68.42 Body mass index [BMI] 45.0-49.9, adult; I11.9 Hypertensive heart disease without heart failure; K21.9 Gastro-esophageal reflux disease without esophagitis; E66.01 Morbid (severe) obesity due to excess calories; F32.A Depression, unspecified; G47.33 Obstructive sleep apnea (adult) (pediatric); R22.2 Localized swelling, mass and lump, trunk; J45.909 Unspecified asthma, uncomplicated; K59.00 Constipation, unspecified; F90.9 Attention-deficit hyperactivity disorder, unspecified type; Z98.84 Bariatric surgery status; Z79.82 Long term (current) use of aspirin; Z80.8 Family history of malignant neoplasm of other organs or systems; Z87.19 Personal history of other diseases of the digestive system; Z88.0 Allergy status to penicillin; Z88.2 Allergy status to sulfonamides
CPT/HCPCS: 74240; 80051; 82310; 82565; 83735; 84100; 84520; 85025; 88304; 94640; 94760

== ENCOUNTER → 2023-03-03 | Outpatient (CLI) | payer BC ==
--- NOTE | 2023-03-03 10:14 | P.BASOAP ---
Subjective Progress Note Date: 03/03/23 Patient status post hiatal hernia repair. No reports of reflux. Reports hunger. 10 pound weight loss since his last visit. Continue bariatric postoperative diet. Transition to soft diet in 2 weeks. Follow up 1 week. Recommend abdominal binder for post-incisional pain. Many options given to his for his diet. Patient also advised to discontinue omeprazole for test of complete relief of reflux. Assessment/Plan Plan: Date: Initial Weight: 200.987 kg Initial BMI: Current Weight: Current BMI: Type of Surgery: Total Volume in Band: Previous Volume: Volume Removed: Volume Added: Band Size:
[2023-03-03 10:57] VITALS: BP 152/89; PULSE 60; RESP 13; TEMP 98.1; BMI 49.6
== END ==
LOC: BARWHC3 09:09
PROVIDERS: ATTEND Surgery Plastic and Reconstructive Surgery
DX: Z53.9 Procedure and treatment not carried out, unspecified reason (principal)
CPT/HCPCS: 99211

== ENCOUNTER → 2023-03-08 | Outpatient (CLI) | payer BC ==
[2023-03-08 14:56] VITALS: BP 150/85; PULSE 70; TEMP 98.9; BMI 49.2
== END ==
LOC: BARWHC3 14:13
PROVIDERS: ATTEND Surgery Plastic and Reconstructive Surgery
DX: Z53.9 Procedure and treatment not carried out, unspecified reason (principal)
CPT/HCPCS: 99211

== ENCOUNTER → 2024-01-03 | Outpatient (CLI) | payer BC ==
--- NOTE | 2024-01-03 11:24 | XR ---
EXAMINATION TYPE: XR chest 2V DATE OF EXAM: 01/03/2024 COMPARISON: 09/24/2014 HISTORY: Shortness of breath TECHNIQUE: Frontal and lateral views of the chest are obtained. FINDINGS: Scattered senescent parenchymal changes noted. No evidence for infiltrate. No evidence for atelectasis. Heart size is stable. Mediastinal structures are stable and grossly unremarkable. No evidence for hilar prominence. Degenerative changes dorsal spine. IMPRESSION: 1. No evidence for acute pulmonary disease.
== END | disposition home or self-care (01) ==
LOC: RADXRMAIN 11:07
PROVIDERS: ATTEND Family Medicine
DX: J18.9 Pneumonia, unspecified organism (principal)
CPT/HCPCS: 71046

== ENCOUNTER 2024-07-30 00:26 | Emergency (ER) | payer BC, OTHER ==
[2024-07-30 00:36] VITALS: TEMP 98.3
--- NOTE | 2024-07-30 01:09 | ED ---
Upper Extremity HPI - General Chief Complaint: Extremity Injury, Upper Stated Complaint: rt arm pain- [facility] Time Seen by Provider: 07/30/24 00:40 Source: patient, RN notes reviewed Mode of arrival: ambulatory Limitations: no limitations - History of Present Illness Initial Comments: This is a 53-year-old male who presents to the emergency department for right arm pain. Patient slipped on ice at work and landed on his right arm. Currently has pain over the right arm and shoulder. States that he has been unable to move it due to the pain. He is also now feeling tingling going into his hand. Denies hitting his head or any loss of consciousness. Denies sustaining any additional injuries. MD Complaint: Injury to:: right, shoulder, elbow - Related Data Home Medications Medication Instructions Recorded Confirmed Atomoxetine HCl [Strattera] 80 mg PO 2200 07/30/14 03/08/23 Benazepril HCl 40 mg PO 2200 01/28/16 03/08/23 Aspirin [Adult Low Dose Aspirin EC] 81 mg PO DAILY 10/13/17 03/08/23 amLODIPine [Norvasc] 10 mg PO 2200 10/13/17 03/08/23 hydroCHLOROthiazide [Hydrodiuril] 25 mg PO 2200 10/13/17 03/08/23 traMADol HCL [Ultram] 50 mg PO Q6HR PRN 10/13/17 03/08/23 Metoprolol Succinate (ER) [Toprol 200 mg PO 2200 10/01/20 03/08/23 XL] Magnesium 800 mg PO DAILY 10/04/22 03/08/23 Multivitamins, Thera [Multivitamin 1 tab PO DAILY 10/04/22 03/08/23 (formulary)] [place]-3 Fatty Acids [[place]-3] 2,000 mg PO DAILY 10/04/22 03/08/23 Omeprazole 40 mg PO 2200 10/04/22 03/08/23 Potassium Citrate 3 tab PO 2200 10/04/22 03/08/23 Sildenafil Citrate 100 mg PO 2200 10/04/22 03/08/23 Previous Rx's Medication Instructions Recorded Calcium Carbonate [Calcium] 600 mg PO BID #60 tablet 12/23/15 HYDROcodone/APAP 5-325MG [Pickerel 1 tab PO Q4HR PRN 3 Days #18 tab 12/08/17 5-325] Acetaminophen Tab [Tylenol Tab] 1,000 mg PO Q6HR PRN #30 tablet 02/27/23 Ondansetron Odt [Zofran Odt] 4 mg PO Q8HR PRN #9 tab 02/27/23 Simethicone 40 mg/0.6 ml Drops 40 mg PO PCHS PRN #30 ml 02/27/23 [Mylicon Drops] bisacodyL [Dulcolax] 5 mg PO DAILY PRN #10 tab 02/27/23 Ketorolac [Toradol] 10 mg PO Q6HR PRN #15 tab 07/30/24 methocarbamoL [Robaxin-750] 1,500 mg PO TID PRN #20 tab 07/30/24 Allergies Allergy/AdvReac Type Severity Reaction Status Date / Time Penicillins Allergy throat Verified 07/30/24 00:36 Swelling Sulfa (Sulfonamide Allergy throat Verified 07/30/24 00:36 Antibiotics) Swelling Review of Systems ROS Statement: Those systems with pertinent positive or pertinent negative responses have been documented in the HPI. ROS Other: All systems not noted in ROS Statement are negative. Past Medical History Past Medical History: Asthma, Hyperlipidemia, Hypertension Additional Past Medical History / Comment(s): hiatal hernia, hx. of colon polyps, last time one was pre-cancerous, uses CPAP History of Any Multi-Drug Resistant Organisms: None Reported Past Surgical History: Adenoidectomy, Appendectomy, Bariatric Surgery, Cholecystectomy, Orthopedic Surgery, Tonsillectomy Additional Past Surgical History / Comment(s): Left ankle surgery, removal of uvula (removed of part of tongue and palate), RICARDO KNEE ARTHROSCOPY, EGD , COLONOSCOPY. gastric sleeve 2014, ricardo knee sugery, PRIOR BACK INJECTIONS Past Anesthesia/Blood Transfusion Reactions: Previous Problems w/ Anesthesia Additional Past Anesthesia/Blood Transfusion Reaction / Comment(s): Can be severely aggressive/violent coming out of anesthesia. "I hurt a nurse" when coming out. (with bariatric surgery and colonoscopy) Past Psychological History: ADD/ADHD Smoking Status: Never smoker Past Alcohol Use History: Rare Past Drug Use History: None Reported - Past Family History Mother Family Medical History: Cancer Additional Family Medical History / Comment(s): uterine and bone, skin cancer, General Exam Limitations: no limitations General appearance: alert, in no apparent distress Head exam: Present: atraumatic, normocephalic, normal inspection Respiratory exam: Present: normal lung sounds bilaterally. Absent: respiratory distress, wheezes, rales, rhonchi, stridor Cardiovascular Exam: Present: regular rate, normal rhythm, normal heart sounds. Absent: systolic murmur, diastolic murmur, rubs, gallop, clicks Extremities exam: Present: other (Tenderness to palpation over the right shoulder and elbow. Range of motion limited by pain. 2+ radial pulses) Neurological exam: Present: alert, oriented X3, CN II-XII intact Psychiatric exam: Present: normal affect, normal mood Skin exam: Present: warm, dry, intact, normal color. Absent: rash Course Vital Signs 07/30/24 07/30/24 00:31 04:18 Temperature 98.3 F Pulse Rate 68 56 L Respiratory 18 16 Rate Blood Pressure 171/91 144/91 O2 Sat by Pulse 96 97 Oximetry Medical Decision Making - Medical Decision Making This is a 53-year-old male who presents to the emergency department for a fall. Was pt. sent in by a medical professional or institution? @ -No Did you speak to anyone other than the patient for history? @ -No Did you review nursing and triage notes? @ -Yes, and I agree, it is accurate with regards to the patient's symptoms. Were old charts reviewed? @ -No Differential Diagnosis? @ -Differential Musculoskeletal Muscular strain, contusion, ligament sprain, fracture, arthritis, septic arthritis, bursitis, cellulitis, muscle spasm, nerve compression, DVT, arterial occlusion, herpes zoster, electrolyte abnormality, tumor.... This is not meant to be in all inclusive list EKG interpreted by me (3pts min.)? @ -Not obtained X-rays interpreted by me (1pt min.)? @ -X-ray of the right shoulder and elbow obtained. My interpretation identifies no acute fractures. CT interpreted by me (1pt min.)? @ -Not obtained U/S interpreted by me (1pt. min.)? @ -Not obtained What testing was considered but not performed? (CT, X-rays, U/S, labs)? Why? @ -None What meds were considered but not given? Why? @ -None Did you discuss the management of the patient with other professionals? @ -No Did you reconcile home meds? @ -No Was smoking cessation discussed for >3mins.? @ -No Was critical care preformed (if so, how long)? @ -No Were there social determinants of health that impacted care today? How? (Homelessness, low income, unemployed, alcoholism, drug addiction, transportation, low edu. Level, literacy, decrease access to med. care, care home, rehab)? @ -No Was there de-escalation of care discussed even if they declined? (Discuss DNR or withdrawal of care, Hospice)? @ -No What co-morbidities impacted this encounter? (DM, HTN, Smoking, COPD, CAD, Cancer, CVA, Hep., AIDS, mental health diagnosis, sleep apnea, morbid obesity)? @ -None Was patient admitted / discharged? @ -Discharged. X-ray of the right shoulder and elbow obtained revealing no acute process. Pain was treated in the emergency department. Prescription for Toradol and Robaxin provided. He was also given follow-up with orthopedics. Patient discharged home in stable condition. Case discussed with ED attending Dr. Aguilar. Undiagnosed new problem with uncertain prognosis? @ -None Drug Therapy requiring intensive monitoring for toxicity (Heparin, Nitro, Insulin, Cardizem)? @ -None Were any procedures done? @ -None Diagnosis/symptom? @ -Fall, right shoulder sprain/contusion Acute, or Chronic, or Acute on Chronic? @ -Acute Uncomplicated (without systemic symptoms) or Complicated (systemic symptoms)? @ -Uncomplicated Side effects of treatment? @ -None Exacerbation, Progression, or Severe Exacerbation] @ -Not applicable Poses a threat to life or bodily function? @ -No - Radiology Data Radiology results: report reviewed, image reviewed Disposition Clinical Impression: Injury of right upper arm Disposition: HOME SELF-CARE Condition: Stable Instructions (If sedation given, give patient instructions): Shoulder Sprain (ED) Additional Instructions: Return to the emergency department with any new, worsening, or concerning symptoms. Take the Toradol with Tylenol as needed for pain relief. If you choose to take the Toradol, do not take any other anti-inflammatories such as ibuprofen, take one or the other. Take the Robaxin as 1 to 2 tablets up to 3-4 times daily. Contact orthopedics as listed below. Let them know that you were seen in the emergency department and they will schedule you for a follow-up appointment. Prescriptions: methocarbamoL [Robaxin-750] 1,500 mg PO TID PRN #20 tab PRN Reason: Pain Ketorolac [Toradol] 10 mg PO Q6HR PRN #15 tab PRN Reason: Pain Is patient prescribed a controlled substance at d/c from ED?: No Referrals: Nacho Mishra MD [Primary Care Provider] - 1-2 days Yoni Campo MD [STAFF PHYSICIAN] - 1-2 days Time of Disposition: 04:02
[2024-07-30] MEDS: KETOROLAC 15 MG/ML 1 ML VIAL IM STA ×2 (01:19→03:32)
[2024-07-30] MEDS: MORPHINE SULFATE 4 MG/ML SYRINGE IM STA (01:19)
[2024-07-30] MEDS: HYDROcodone/APAP 7.5-325MG 1 EACH TAB PO ONE (03:33)
--- NOTE | 2024-07-30 03:54 | XR ---
EXAM: XR Right Shoulder Complete, 2 or More Views CLINICAL HISTORY: ITS.REASON XR Reason: Fall TECHNIQUE: Two or more views of the right shoulder. COMPARISON: No relevant prior studies available. FINDINGS: Bones/joints: Unremarkable. No acute fracture. No dislocation. Soft tissues: Unremarkable. IMPRESSION: No acute fracture.
--- NOTE | 2024-07-30 03:57 | XR ---
EXAM: XR Right Elbow Complete, 3 or More Views CLINICAL HISTORY: ITS.REASON XR Reason: Fall TECHNIQUE: Frontal, lateral and oblique views of the right elbow. COMPARISON: No relevant prior studies available. FINDINGS: Bones/joints: Diffuse osseous demineralization. Osteophytic spurring of the radiocapitellar and ulnohumeral articulations. No acute fracture or subluxation. Soft tissues: Unremarkable. IMPRESSION: No acute fracture or subluxation.
[2024-07-30] MEDS: ACET/COD 300 MG/30 MG STARTER PACK 6 TAB BTL PO STA (04:07)
[2024-07-30] MEDS: IBUPROFEN 600 MG STARTER PACK 4 TAB BTL PO STA (04:09)
[2024-07-30] MEDS: HYDROmorphone 1 MG/ML 1 ML SYRINGE IM STA (04:10)
[2024-07-31 04:04] VITALS: BP 144/91; PULSE 56; RESP 16
== END 2024-07-30 04:18 | disposition home or self-care (01) ==
LOC: EC 00:26
DX: S40.011A Contusion of right shoulder, initial encounter (principal); S59.901A Unspecified injury of right elbow, initial encounter; Z88.0 Allergy status to penicillin; Z88.2 Allergy status to sulfonamides; W00.0XXA Fall on same level due to ice and snow, initial encounter
CPT/HCPCS: 99284; 73030; 73080; 96372; J2270; J1171; J1885

== ENCOUNTER 2024-09-06 05:49 | Day surgery (SDC) | payer BC, OTHER ==
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
[~2024-09-06 05:49] MED LIST changes: -DEXAMETHASONE SOD PHOSPHATE 4 MG/ML 1 ML VIAL IV ONE; -ENOXAPARIN 40 MG/0.4 ML SYRINGE SQ PRN; -HYDROmorphone 0.5 MG/0.5 ML SYRINGE IVP PRN; -LIDOCAINE 1% (10MG/ML) FOR IV START INTRADERMA PRN; -ONDANSETRON 4 MG/2 ML VIAL IVP ONE; -PANTOPRAZOLE 40 MG/10 ML VIAL IVP PRN; +SCOPOLAMINE 1 MG/72 HR PATCH TRANSDERM ONE; -ceFAZolin 3 GM in SODIUM CHLORIDE 0.9% 100 ML IVPB PRN; -droPERidol 5 MG/2 ML VIAL IVP PRN
[2024-09-06] MEDS: IV FLUID CONTINUATION 1,000 ML IV ONE (06:16)
[2024-09-06] MEDS ORDERED: HYDROmorphone 0.5 MG/0.5 ML SYRINGE IVP PRN (07:00)
[2024-09-06] MEDS: DEXAMETHASONE SOD PHOSPHATE 4 MG/ML 1 ML VIAL IV ONE (07:02)
[2024-09-06] MEDS: ONDANSETRON 4 MG/2 ML VIAL IVP ONE (07:02)
[2024-09-06] MEDS: MIDAZOLAM 2 MG/2 ML VIAL IV PRN (07:10)
[2024-09-06] MEDS: LACTATED RINGERS 1,000 ML IV SCH (07:28)
[2024-09-06] MEDS ORDERED: PROPOFOL 10 MG/ML 20 ML VIAL IV ONE (07:38)
[2024-09-06] MEDS ORDERED: PHENYLEPHRINE 10 MG/ML VIAL ONE (07:38)
[2024-09-06] MEDS ORDERED: ePHEDrine 50 MG/ML 1 ML VIAL ONE (07:38)
[2024-09-06] MEDS ORDERED: LIDOCAINE 1% INJ 10MG/ML (20 ML MDV) ONE (07:38)
[2024-09-06] MEDS ORDERED: VASOPRESSIN 20 UNIT/ML 1 ML VIAL ONE (07:38)
[2024-09-06] MEDS ORDERED: WATER FOR INJECTION, STERILE 10 ML VIAL IV ONE (07:38)
[2024-09-06] MEDS ORDERED: fentaNYL (PF) 50 MCG/ML 2 ML AMP ONE (07:38)
[2024-09-06] MEDS ORDERED: SUCCINYLCHOLINE CHLORIDE 200 MG/10 ML VIAL IV ONE (07:38)
[2024-09-06] MEDS ORDERED: LIDOCAINE 4% LTA KIT (4 ML) TOPICAL ONE (07:38)
[2024-09-06] MEDS ORDERED: GLYCOPYRROLATE 0.2 MG/ML 2 ML VIAL ONE (07:38)
[2024-09-06] MEDS ORDERED: MIDAZOLAM 2 MG/2 ML VIAL ONE (07:38)
[2024-09-06] MEDS ORDERED: DEXAMETHASONE SOD PHOSPHATE 4 MG/ML 1 ML VIAL ONE (07:38)
[2024-09-06] MEDS ORDERED: ROPIVACAINE 5 MG/ML 30 ML VIAL ONE (07:38)
[2024-09-06] MEDS: ceFAZolin 3 GM in SODIUM CHLORIDE 0.9% 100 ML IVPB PRN (07:43)
--- NOTE | 2024-09-06 08:16 | P.ANPRN ---
Procedure Note - Anesthesia - Nerve Block Performed Right Interscalene Single Time Out Performed: Yes Date of Procedure: 09/06/24 Procedure Start Time: 07:10 Procedure Stop Time: 07:15 Location of Patient: PreOp Indication: Acute Post-Operative Pain, Analgesia, Requested by Surgeon Sedation Type: Sedate with meaningful contact maintained Preparation: Sterile Prep Position: Sitting Catheter: None Needle Types: Pajunk Needle Gauge: 21 Ultrasound used to visualize needle placement: Yes Ultrasound used to observe medication spread: Yes Injectate: 0.5% Ropivacaine (see comment for volume) ([id number]. Negative stimulation at o.5 MA (Resident)) Blood Aspirated: No Pain Paresthesia on Injection Noted: No Resistance on Injection: Normal
[2024-09-06] MEDS: EPINEPHrine (PF) 1 ML in SODIUM CHLORIDE 0.9% IRRIGATIO 3,000 ML IRRIGATION ONE ×4 (08:36→08:37)
--- NOTE | 2024-09-06 09:30 | P.OP ---
Date of Procedure: 09/06/24 Preoperative Diagnosis: Acute right rotator cuff tear Postoperative Diagnosis: 5 cm retracted rotator cuff tear, high-grade partial-thickness tear intra- articular portion long head of the biceps Procedure(s) Performed: Right shoulder arthroscopic subacromial decompression/rotator cuff repair/biceps tenotomy Implants: Arthrex 4.75 mm swivel lock anchor x 2, 5.5 mm swivel lock anchor x 2 Anesthesia: EMILYA, regional Surgeon: Yoni Campo Land Acquisition Analyst #1: Dinesh Dyer Estimated Blood Loss (ml): 10 Pathology: none sent Condition: stable Disposition: PACU Indications for Procedure: The patient is a 54-year-old male who presents with right shoulder pain and weakness after a recent injury at work. Upon evaluation he was noted to have a large retracted rotator cuff tear. A discussion of the risks and benefits of operative intervention was made with the patient. He opted to proceed with surgery. Operative risks include infection, neurovascular injury, development of blood clots, possible tendon rerupture, possible postoperative stiffness, and possible need for subsequent procedures was discussed. We also discussed his tear pattern and the possibility of this being an acute on chronic tear and may not be fully repairable. Informed consent was obtained. Operative Findings: As below Description of Procedure: The patient was brought to the operating room, and after induction of general anesthesia was placed in a beachchair position. A preoperative interscalene block was placed for postoperative analgesia. I examined the right shoulder. There was no gross block to passive motion or gross glenohumeral instability. The [] upper extremity was prepped and draped in normal fashion. The bony outlines the acromion, distal clavicle, and coracoid process were outlined with a skin marker. The glenohumeral joint was inflated with 50 mL of saline utilizing a spinal needle from posterior approach. A posterior portal was made through a 5 mm skin incision 1 cm medial and inferior to the posterior lateral border time. A blunt trocar was used to easily into the joint. Diagnostic arthroscopy was performed. An anterior portal was made just lateral to the coracoid process entering the joint above the subscapularis tendon. The subscapularis tendon appeared to be intact. Anterior labrum was intact. The inferior recess was inspected. The posterior labrum was intact. There was a high-grade partial-thickness tear of the long head of the biceps involving interarticular portion. It was elected to proceed with release at this point. This was released from the superior labrum with electrocautery and was allowed to retract to the bicipital groove. On inspection the rotator cuff, a large retracted rotator cuff tear involving the supraspinatus and infraspinatus was noted. The arthroscope was placed into the subacromial space. A lateral portal was made 2 centimeters inferior to the anterior lateral border of the acromion. The rotator cuff was then mobilized with a traction suture. This was then brought back to the greater tuberosity. The bursal tissue and adhesions were removed with a shaver. The soft tissue on the undersurface of the acromion was debrided with a motorized shaver and electrocautery clearly defining the anterior medial and lateral borders as well as the distal clavicle. An anterior inferior acromioplasty was performed with a motorized saba starting anterolateral, then extending this posteriorly, then extending this medially. I converted to a flat acromion and this was verified in the posterior and lateral viewing portals. The greater tuberosity was lightly decorticating with a shaver down to a bleeding bony surface. An accessory superior lateral portals made just off the lateral edge of the acromion for anchor placement. 2 anchors were then placed just off the articular surface with the appropriate starting awl. 4.75 mm anchors preloaded with #2 fiber tape were placed. Good purchase was obtained. These fiber tapes were then passed the rotator cuff with a scorpion suture passer. A lateral row was created crisscrossing these tapes. 5.5 mm swivel lock anchors x2 were placed laterally. Good purchase was obtained. Final arthroscopic view showed adequate compression at the footprint. The arthroscope was then removed. The portals were closed with simple 3-0 nylon sutures. A sterile dressing was applied in addition to an abductor brace. The patient was then awoken from general anesthesia and transferred to recovery room in good condition. Blood loss was estimated at 10 mL. No complications were incurred. Sponge and needle counts were correct in the case. Dinesh BLISS assisted and the major components of the case to include arm positioning, anchor placement, and rotator cuff repair.
[2024-09-06] MEDS: LACTATED RINGERS 1,000 ML IV ONE (09:34)
[2024-09-06 09:47] VITALS: TEMP 96.8
[2024-09-06 10:48] VITALS: RESP 16
[2024-09-06 11:18] VITALS: BP 120/74; PULSE 68
--- NOTE | 2024-09-06 11:23 | P.ANPRN ---
Procedure Note - Anesthesia - Nerve Block Performed Right Interscalene Single Time Out Performed: Yes Date of Procedure: 09/06/24 Procedure Start Time: 07:10 Procedure Stop Time: 07:15 Location of Patient: PreOp Indication: Acute Post-Operative Pain, Analgesia, Requested by Surgeon Sedation Type: Sedate with meaningful contact maintained Preparation: Sterile Prep Position: Sitting Catheter: None Needle Types: Pajunk Needle Gauge: 21 Ultrasound used to visualize needle placement: Yes Ultrasound used to observe medication spread: Yes Injectate: 0.5% Ropivacaine (see comment for volume) (Ropiv 20ml+[id number], No stimulation @0.5MA (Resident)) Blood Aspirated: No Pain Paresthesia on Injection Noted: No Resistance on Injection: Normal Image Stored and Saved: Yes Events: Uneventful and Well Tolerated
== END 2024-09-06 11:46 | disposition home or self-care (01) ==
LOC: OR 05:49
PROVIDERS: ATTEND Orthopaedic Surgery
DX: S46.111A Strain of muscle, fascia and tendon of long head of biceps, right arm, initial encounter (principal); M75.101 Unspecified rotator cuff tear or rupture of right shoulder, not specified as traumatic; E78.5 Hyperlipidemia, unspecified; G47.30 Sleep apnea, unspecified; G89.18 Other acute postprocedural pain; I10 Essential (primary) hypertension; J45.909 Unspecified asthma, uncomplicated; K21.9 Gastro-esophageal reflux disease without esophagitis; M19.90 Unspecified osteoarthritis, unspecified site; Z88.0 Allergy status to penicillin; Z88.1 Allergy status to other antibiotic agents; Z88.2 Allergy status to sulfonamides; Z90.89 Acquired absence of other organs; Z98.84 Bariatric surgery status; Z79.899 Other long term (current) drug therapy; Z90.49 Acquired absence of other specified parts of digestive tract; X58.XXXA Exposure to other specified factors, initial encounter
CPT/HCPCS: 29827; 29828; 64415; C1713 ×3; C1894; J2250; J0330; J1100; J0690; J2405; J0171; J2003; J3010; J2795; J2704; J2371; J1596

== ENCOUNTER 2024-10-04 09:50 | Day surgery (SDC) | payer BC ==
[2024-10-02 14:22] VITALS: BMI 51.0
[~2024-10-04 09:50] MED LIST changes: +LACTATED RINGERS 1,000 ML IV SCH; -SCOPOLAMINE 1 MG/72 HR PATCH TRANSDERM ONE
[2024-10-04 10:30] VITALS: RESP 18; TEMP 97
[2024-10-04] MEDS ORDERED: IOPAMIDOL M200 10 ML VIAL ONE (11:09)
[2024-10-04] MEDS ORDERED: methylPREDNISolone ACETATE 80 MG/ML 1 ML VIAL ONE (11:09)
--- NOTE | 2024-10-04 11:18 | P.PCN ---
Date of Procedure: 10/04/24 Procedure(s) Performed: PREOPERATIVE DIAGNOSIS: 1- Lumbar radiculopathy 2-Lumbar anteriolisthesis POSTOPERATIVE DIAGNOSIS: Same as preop diagnosis PROCEDURE 1. Lumbar epidural steroid injection under fluoroscopic guidance at the L4-5 level. (Fluoroscopy imaging was available in radiology department) 2. Lumbar epidurogram. ANESTHESIA: Lidocaine 1% 3 and then only. EBL: Minimal PROCEDURE INDICATION: The patient with low back pain and radiculitis symptoms unresponsive to conservative treatment. Fluoroscopy was used to optimize visualization of the needle placement and to maximize safety. PROCEDURE DESCRIPTION / TECHNIQUE: The patient was seen and identified in the preoperative area. Risks, benefits, complications including but not limited to infections ,bleeding ,allergic reaction to the medications ,nerve damage and not complete pain releife , and alternatives were discussed with the patient. The patient agreed to proceed with the procedure and signed the consent, and vital signs were stable. Patient was taken to the OR and time out was completed. The patient was placed in the prone position on procedure table and a pillow was placed under the abdomen to reduce lumbar lordosis. The lumbosacral area was prepped and draped in the usual sterile fashion.ere closely monitored during the procedure. Vital signs was monitered during the entire procedure. Using anterior-posterior fluoroscopy, the L4-5 interlaminar space was identified and the skin over this site was marked and then infiltrated with 1% lidocaine subcutaneously. Subsequently, 18-gauge 6 inches long Tuohy epidural needle was inserted and advanced toward the epidural space using the ``Loss of resistance technique and guided by AP and lateral fluoroscopy. The correct needle position in the epidural space was verified with the injection of 2 mL of the water soluble contrast dye Isovue 200 contrast and observing an excellent epidurogram with the epidural spread of the dye, after negative aspiration for blood and CSF and in the absence of paresthesias. Again after negative aspiration, a 6 ml mixture containing 80 mg of Depo-medrol ( Preservetive Free ), and 2 ml of preservative free Normal Saline, and 2 ml of preservative free lidocaine 1% solution was injected and a washout of epidurogram was seen. Needle was withdrawn intact, skin was cleansed, and bandages were applied. COMPLICATIONS: None DISPOSITION / PLANS: The patient was placed in a supine position and transferred to the recovery area in a stable condition for observation. There was no evidence of lower extremity motor or sensory deficit after the procedure. Patient was discharged from the recovery room after meeting discharge criteria. Home discharge instructions were given to the patient by the staff. The patient was reexamined prior to discharge. The patient will schedule a follow up in the clinic in 2-4 weeks.
--- NOTE | 2024-10-04 11:37 | FL ---
EXAMINATION TYPE: FL guided pain mgmt statistic DATE OF EXAM: 10/04/2024 11:27 AM COMPARISON: Pre Operative Images if available both CT/MRI or plain film CLINICAL INDICATION: Male, 54 years old with history of PAIN; TECHNIQUE: [place] guided pain mgmt statistic, multiple fluoroscopic images provided for procedure. DAP: 0.30760 mGym2 Gycm2 uGym2 cGycm2 or equivalent. FINDINGS: Fluoroscopic images during injection for pain management demonstrate multilevel degeneration changes throughout the spine. No evidence for fracture. No acute process identified. IMPRESSION: 1. No evidence for intraoperative complication. 2. Please see the operative/procedural note for further details. [facility], , 10/04/2024 11:35 AM
[2024-10-04 11:40] VITALS: BP 139/87; PULSE 69
== END 2024-10-04 11:54 | disposition home or self-care (01) ==
LOC: ORPAIN 09:50
PROVIDERS: ATTEND Specialist
DX: M54.16 Radiculopathy, lumbar region (principal); Z88.0 Allergy status to penicillin; Z88.2 Allergy status to sulfonamides
CPT/HCPCS: 62323; Q9966; J1010

== ENCOUNTER → 2024-10-21 | Outpatient (CLI) | payer BC ==
[2024-10-21 11:08] VITALS: BP 124/88; PULSE 72; RESP 18; TEMP 98.4
--- NOTE | 2024-10-21 13:29 | P.PAINPG ---
Objective - Vital Signs Vital signs: Vital Signs Temp 98.4 F 10/21/24 11:06 Pulse 72 10/21/24 11:06 Resp 18 10/21/24 11:06 BP 124/88 10/21/24 11:06 Pulse Ox 97 10/21/24 11:06 FiO2 Intake & Output 10/20/24 10/21/24 10/21/24 18:59 06:59 18:59 Weight 158.757 kg PQRS Measure Charge Sheet Mode of Arrival: Ambulatory Comment: HISTORY OF PRESENT ILLNESS: A 54 yr old male w at side presents today w severe and chronic LBP > 1 yr secondary to radiculopathy, spondylosis and facet arthropathy without myelopathy for evaluation s/p BRIAN L4-L5 #1. Pt states he experienced 75% pain relief x 2 wks s/p procedure. Pt states pain level is provoked at 8 /10 in intensity, constant, localized in the lumbar spine, predominantly axial, dull in character w occasional shooting pain towards the R hip. Pain is provoked by over activity. Pain is alleviated by PT x 4 wks which ended in Jul 2024, physician guided home exercises 4-5 times weekly since Jul 2024, heat, ice, medications, repositioning and rest . Interventional procedures include BRIAN L4-L5 x1 Medications include Tramadol ([place] currently for R Shoulder Surgery) REVIEW OF ORGAN SYSTEMS: CONSTITUTIONAL: No fevers or chills. No recent weight loss. NEUROLOGICAL: + numbness and tingling along the distal extremities. No seizure disorders or headaches. MUSCULOSKELETAL: + pain PSYCHIATRIC: Denies current depression or suicidal thoughts. Physical Examinations : Constitutional : Cooperative , not in acute distress . Neurologic : Cranial nerve II to XII intact. No focal neurological deficits. Psychiatric : alert & oriented x 3. Matching mood & appropriate affect. Judgment & insight intact. Musculoskeletal : Cervical Spine Motor strength in the deltoid and biceps: Normal right side. Normal Left side Motor strength biceps and the wrist extensors: Normal right side . Normal left side Motor strength in the triceps muscle: Normal right side. Normal left side Deep tendon reflexes: Normal at the biceps. Normal at Brachioradialis. Normal at triceps Vertebral body tenderness to deep palpation over Cervical facet loading test: positive bilaterally Spurling test: positive bilaterally Neck distraction test: positive bilaterally Ander sign: positive bilaterally Lumbar spine Motor strength lower extremities ,thigh and legs 5/5 Right side , 5/5 Left side Deep tendon reflexes : Normal Knee Jerk. Normal Ankle Jerk Vertebral body tenderness over L4 Frost Test positive R L4-L5 Lumbar facet Loading Test: positive Right / positive Left Range of motion of the lumbar spine Flexion 30 degrees, extension 10 degrees Straight Leg Raise test: Left/ Right positive at degrees John test: positive right / positive left. Severe tenderness over the Sacroiliac joint on the Right / Left sides Gaenslen test: positive bilaterally Seated flexion test: positive bilaterally. Sacral spine : Severe tenderness over the Sacroiliac joint: right side / left side Range of motion: Flexion of the lumbar spine <60 degrees Range of motion: Extension of the lumbar spine <20 degrees Gaenslen's Test positive John test: positive right side / left side Thigh Thrust Test Sacral Thrust Test Imaging: MRI non contrast lumbar spine from 07/11/24 reviewed Assessment/ Plan : L4-L5 anterolisthesis Recommendation of R TFESI L4-L5 #1. Risks, benefits of procedure discussed and patient verbalized understanding. Admits to anti- coagulant use or medical histo ry of diabetes. Protocol for discontinuation/ continuation of medications veronica procedure discussed. All questions answered. I have spent greater than 30 minutes on patient care today. Dr Wright was available by phone for the evaluation of this patient. The time was used to review the medical records including relevant urine studies and Prescription history (MAPs), review of the available imaging, evaluation and examination of the patient, coordination of care with the medical staff and if applicable referring physicians, as well as creation of the medical record - Pain Location Lower Back Pharmacological Interventions: Medication PQRS Narrative: Smoking Status Never smoker Blood Pressure 124/88 Pain Intensity [Lower Back] 8 Scale Used Numeric (1 - 10) Hx Alcohol Use (MH) Yes Home Medications: Ambulatory Orders Atomoxetine HCl [Strattera] 80 mg PO 219907/30/14 Calcium Carbonate [Calcium] 600 mg PO BID #60 tablet 12/23/15 Benazepril HCl 40 mg PO 219901/28/16 Aspirin [Adult Low Dose Aspirin EC] 81 mg PO DAILY 10/13/17 amLODIPine [Norvasc] 10 mg PO 219910/13/17 hydroCHLOROthiazide [Hydrodiuril] 25 mg PO 219910/13/17 traMADol HCL [Ultram] 50 mg PO Q6HR PRN 10/13/17 Metoprolol Succinate (ER) [Toprol XL] 200 mg PO 219910/01/20 Magnesium 800 mg PO DAILY 10/04/22 Multivitamins, Thera [Multivitamin (formulary)] 1 tab PO DAILY 10/04/22 Omeprazole 40 mg PO 219910/04/22 Potassium Citrate 3 tab PO 219910/04/22 Sildenafil Citrate 100 mg PO DIRECTED PRN 10/04/22 Acetaminophen Tab [Tylenol Tab] 1,000 mg PO Q6HR PRN #30 tablet 02/27/23 Albuterol Inhaler [Ventolin Hfa Inhaler] 1 - 2 puff INHALATION Q6H PRN 09/04/24 Rosuvastatin [Crestor] 10 mg PO 219909/04/24 HYDROcodone/APAP 7.5-325MG [[place] 7.5-325] 1 tab PO Q6HR PRN #28 tab 09/06/24 Controlled Substance Measures - Controlled Substance Measures Is patient prescribed a controlled substance at discharge?: No
== END ==
LOC: PNWHC3 10:51
PROVIDERS: ATTEND Specialist
DX: M43.16 Spondylolisthesis, lumbar region (principal); Z88.0 Allergy status to penicillin; Z88.2 Allergy status to sulfonamides
CPT/HCPCS: 99212

== ENCOUNTER 2024-11-05 06:00 | Day surgery (SDC) | payer BC ==
[2024-10-31 16:05] VITALS: BMI 50.2
[2024-11-05 06:31] VITALS: TEMP 98.3
[2024-11-05] MEDS ORDERED: IOPAMIDOL M200 10 ML VIAL ONE (07:01)
[2024-11-05] MEDS ORDERED: methylPREDNISolone ACETATE 80 MG/ML 1 ML VIAL ONE (07:01)
--- NOTE | 2024-11-05 07:09 | P.PCN ---
Date of Procedure: 11/05/24 Procedure(s) Performed: PREOPERATIVE DIAGNOSIS: 1-Lumbar radiculopathy . 2-lumbar anterolisthesis POSTOPERATIVE DIAGNOSIS: 1-lumbar radiculopathy. 2-lumbar anterolisthesis PROCEDURE 1. Transforaminal epidural steroid injection under fluoroscopic guidance at right L4-5 level. (Fluoroscopy images stored on file in the radiology Department ) 2. Lumbar epidurogram . ANESTHESIA: Local with 1% lidocaine 3 ml. EBL: Minimal PROCEDURE INDICATION: The patient with low back pain and radiculopathy symptoms unresponsive to conservative treatment. PROCEDURE DESCRIPTION / TECHNIQUE: The patient was seen and identified in the preoperative area. Risks, benefits, complications, and alternatives were discussed with the patient. The patient agreed to proceed with the procedure and signed the consent. IV was started, and vital signs were stable. Patient was taken to the OR and time out was completed. The patient was placed in the prone position on procedure table and a pillow was placed under the abdomen to reduce lumbar lordosis. The lumbosacral area was prepped and draped in the usual sterile fashion. Critical pause was taken. Vital signs were closely monitored during the procedure. Using oblique fluoroscopy, the chin of the ``Robb dog at Right L4-5 level was identified, and the skin and deeper tissues just below was localized with 1% lidocaine. Subsequently, a 22-gauge 5-inch spinal needle was advanced under a tunneled view fluoroscopic guidance just underneath the chin of the ``Robb dog at the right L4-5 Under lateral fluoroscopy, the needle was then advanced to the posterior border of the interforaminal space. After negative aspiration of CSF and blood and with no paresthesias, 1 mL Isovue 200 contrast dye was injected excellent epidurogram and outlining of the nerve root Subsequently, 3 mL of block solution containing 80 mg Depo-Medrol and 2 mL of 0.9% normal sa line PF was injected. Needle was removed . At the end of the procedure, skin was cleansed, and bandages were applied. COMPLICATIONS:none DISPOSITION / PLANS: The patient was placed in a supine position and transferred to the recovery area in a stable condition for observation. There was no evidence of lower extremity motor or sensory deficit after the procedure. Patient was discharged from the recovery room after meeting discharge criteria. Home discharge instructions were given to the patient by the staff. The patient was reexamined prior to discharge.
[2024-11-05 07:13] VITALS: RESP 16
[2024-11-05] MEDS ORDERED: LACTATED RINGERS 1,000 ML IV SCH (07:15)
[2024-11-05 07:32] VITALS: BP 134/72; PULSE 70
--- NOTE | 2024-11-05 08:13 | FL ---
EXAMINATION TYPE: FL guided pain mgmt statistic DATE OF EXAM: 11/05/2024 7:14 AM COMPARISON: Pre Operative Images if available both CT/MRI or plain film CLINICAL INDICATION: Male, 54 years old with history of Transforaminal Inj; TECHNIQUE: [place] guided pain mgmt statistic, multiple fluoroscopic images provided for procedure. DAP: 0.18348 mGym2 Gycm2 uGym2 cGycm2 or equivalent. FINDINGS: Fluoroscopic images during injection for pain management demonstrate multilevel degeneration changes throughout the spine. No evidence for fracture. No acute process identified. IMPRESSION: 1. No evidence for intraoperative complication. 2. Please see the operative/procedural note for further details. [facility], , 11/05/2024 8:11 AM
== END 2024-11-05 07:35 | disposition home or self-care (01) ==
LOC: ORPAIN 06:00
PROVIDERS: ATTEND Specialist
DX: M47.26 Other spondylosis with radiculopathy, lumbar region (principal); Z88.0 Allergy status to penicillin; Z88.2 Allergy status to sulfonamides
CPT/HCPCS: 64483; Q9966; J1010

== ENCOUNTER 2025-01-03 07:39 | Day surgery (SDC) | payer BC ==
[2025-01-02 10:51] VITALS: BMI 50.9
[2025-01-03] MEDS ORDERED: LACTATED RINGERS 1,000 ML IV SCH (07:57)
[2025-01-03 08:13] VITALS: TEMP 97.6
[2025-01-03] MEDS ORDERED: IOPAMIDOL M200 10 ML VIAL ONE (08:36)
[2025-01-03] MEDS ORDERED: methylPREDNISolone ACETATE 80 MG/ML 1 ML VIAL ONE (08:36)
--- NOTE | 2025-01-03 08:47 | P.PCN ---
Date of Procedure: 01/03/25 Procedure(s) Performed: PREOPERATIVE DIAGNOSIS: 1-Lumbar radiculopathy . 2-lumbar anterolisthesis POSTOPERATIVE DIAGNOSIS: 1-lumbar radiculopathy. 2-lumbar anterolisthesis PROCEDURE 1. Transforaminal epidural steroid injection under fluoroscopic guidance at right L3-4 ,and Right L4-5 level (Fluoro images on file in the radiology Department ) 2. Lumbar epidurogram . ANESTHESIA: Local with 1% lidocaine 4 ml. EBL: Minimal PROCEDURE INDICATION: The patient with low back pain and radiculopathy symptoms unresponsive to conservative treatment. PROCEDURE DESCRIPTION / TECHNIQUE: The patient was seen and identified in the preoperative area. Risks, benefits, complications, and alternatives were discussed with the patient. The patient agreed to proceed with the procedure and signed the consent, and vital signs were stable. Patient was taken to the OR and time out was completed. The patient was placed in the prone position on procedure table and a pillow was placed under the abdomen to reduce lumbar lordosis. The lumbosacral area was prepped and draped in the usual sterile fashion. Critical pause was taken. Vital signs were closely monitored during the procedure. Using oblique fluoroscopy, the chin of the ``Robb dog at Right L4-5 level was identified, and the skin and deeper tissues just below was localized with 1% lidocaine. Subsequently, a 22-gauge 5-inch spinal needle was advanced under a tunneled view fluoroscopic guidance just underneath the chin of the ``Robb dog at the right L4-5 Under lateral fluoroscopy, the needle was then advanced to the posterior border of the interforaminal space. After negative aspiration of CSF and blood and with no paresthesias, 1 mL Isovue 200 contrast dye was injected excellent epidurogram and outlining of the nerve root Subsequently, 3 mL of block solution containing 40 mg Depo-Medrol and 2 mL of 0.9% normal saline PF was injected. Needle was removed, and the exact same procedure was repeated at Right L3-4 level. At the end of the procedure, skin was cleansed, and bandages were applied. COMPLICATIONS:none DISPOSITION / PLANS: The patient was placed in a supine position and transferred to the recovery area in a stable condition for observation. There was no evidence of lower extremity motor or sensory deficit after the procedure. Patient was discharged from the recovery room after meeting discharge criteria. Home discharge instructions were given to the patient by the staff. The patient was reexamined prior to discharge.
--- NOTE | 2025-01-03 09:05 | FL ---
EXAMINATION TYPE: FL guided pain mgmt statistic DATE OF EXAM: 01/03/2025 FLUOROSCOPY transforaminal injection, fluoro time: 4 seconds, 0.00414 DAP One image is provided. [facility], , 01/03/2025 9:03 AM
[2025-01-03 09:10] VITALS: BP 121/70; PULSE 78; RESP 18
== END 2025-01-03 09:26 | disposition home or self-care (01) ==
LOC: ORPAIN 07:39
PROVIDERS: ATTEND Specialist
DX: M43.16 Spondylolisthesis, lumbar region (principal); M54.16 Radiculopathy, lumbar region; Z88.0 Allergy status to penicillin; Z88.2 Allergy status to sulfonamides
CPT/HCPCS: 64483; 64484; Q9966; J1010

== ENCOUNTER → 2025-01-27 | Outpatient (CLI) | payer BC ==
[2025-01-27 11:59] VITALS: BP 154/91; PULSE 63; RESP 16
--- NOTE | 2025-01-29 08:00 | P.PAINPG ---
Objective - Vital Signs Vital signs: Vital Signs Temp Pulse 63 01/27/25 11:52 Resp 16 01/27/25 11:52 BP 154/91 01/27/25 11:52 Pulse Ox 97 01/27/25 11:52 FiO2 Intake & Output 01/26/25 01/27/25 01/27/25 18:59 06:59 18:59 Weight 158.757 kg PQRS Measure Charge Sheet Mode of Arrival: Ambulatory Comment: HISTORY OF PRESENT ILLNESS: A 54 yr old male w at [facility] presents today w severe and chronic LBP > 1 yr secondary to radiculopathy, spondylosis and facet arthropathy without myelopathy for evaluation s/p R TFESI L3-L4/ L4-L5 #2. Pt states he experienced 50% pain relief x 2-3 wks s/p procedure. Pt states pain level is provoked at 6 /10 in intensity, constant, localized in the lumbar spine, predominantly axial, dull in character without shooting pain Pain is provoked by over activity. Pain is alleviated by PT x 4 wks which ended in Jul 2024, physician guided home exercises 4-5 times weekly since Jul 2024, heat, ice, medications, repositioning and rest . Interventional procedures include BRIAN L4-L5 x1, R TFESI L4-L5 x1, R TFESI L3-L4/ L4-L5 x1 (01/08) Medications include Tramadol ([place] currently for R Shoulder Surgery) REVIEW OF ORGAN SYSTEMS: CONSTITUTIONAL: No fevers or chills. No recent weight loss. NEUROLOGICAL: + numbness and tingling along the distal extremities. No seizure disorders or headaches. MUSCULOSKELETAL: + pain PSYCHIATRIC: Denies current depression or suicidal thoughts. Physical Examinations : Constitutional : Cooperative , not in acute distress . Neurologic : Cranial nerve II to XII intact. No focal neurological deficits. Psychiatric : alert & oriented x 3. Matching mood & appropriate affect. Judgment & insight intact. Musculoskeletal : Cervical Spine Motor strength in the deltoid and biceps: Normal right side. Normal Left side Motor strength biceps and the wrist extensors: Normal right side . Normal left side Motor strength in the triceps muscle: Normal right side. Normal left side Deep tendon reflexes: Normal at the biceps. Normal at Brachioradialis. Normal at triceps Vertebral body tenderness to deep palpation over Cervical facet loading test: positive bilaterally Spurling test: positive bilaterally Neck distraction test: positive bilaterally Ander sign: positive bilaterally Lumbar spine Motor strength lower extremities ,thigh and legs 5/5 Right side , 5/5 Left side Deep tendon reflexes : Normal Knee Jerk. Normal Ankle Jerk Vertebral body tenderness over L4 Frost Test positive R L3-L4/ L4-L5 Lumbar facet Loading Test: positive Right / positive Left L4-L5, L5-S1 Range of motion of the lumbar spine Flexion 30 degrees, extension 10 degrees Straight Leg Raise test: Left/ Right positive at degrees John test: positive right / positive left. Severe tenderness over the Sacroiliac joint on the Right / Left sides Gaenslen test: positive bilaterally Seated flexion test: positive bilaterally. Sacral spine : Severe tenderness over the Sacroiliac joint: right side / left side Range of motion: Flexion of the lumbar spine <60 degrees Range of motion: Extension of the lumbar spine <20 degrees Gaenslen's Test positive John test: positive right side / left side Thigh Thrust Test Sacral Thrust Test Imaging: MRI non contrast lumbar spine from 07/11/24 reviewed Assessment/ Plan : L4-L5 anterolisthesis Recommendation of BL MBB L4-L5, L5-S1 #1. Risks, benefits of procedure discussed and patient verbalized understanding. Protocol for discontinuation/ continuation of medications veronica procedure discussed. Minimal anesthesia including Fentanyl and Versed if clinically indicated. All questions answered. I have spent greater than 30 minutes on patient care today. Dr Wright was available by phone for the evaluation of this patient. The time was used to review the medical records including relevant urine studies and Prescription history (MAPs), review of the available imaging, evaluation and examination of the patient, coordination of care with the medical staff and if applicable referring physicians, as well as creation of the medical record - Pain Location Bilateral Lower Back Non-Pharmacological Interventions: Chiropractic Treatment, Home Exercise, Ice, Physical Therapy, Stretching, TENS Unit Pharmacological Interventions: Epidural, PRN Medication, Topical Medication PQRS Narrative: Smoking Status Never smoker Blood Pressure 154/91 Pain Intensity [Bilateral 6 Lower Back] Scale Used Numeric (1 - 10) Hx Alcohol Use (MH) Yes Home Medications: Ambulatory Orders Atomoxetine HCl [Strattera] 80 mg PO QAM 07/30/14 Calcium Carbonate [Calcium] 600 mg PO BID #60 tablet 12/23/15 Benazepril HCl 40 mg PO QAM 01/28/16 Aspirin [Adult Low Dose Aspirin EC] 81 mg PO QAM 10/13/17 amLODIPine [Norvasc] 10 mg PO QAM 10/13/17 hydroCHLOROthiazide [Hydrodiuril] 25 mg PO QAM 10/13/17 traMADol HCL [Ultram] 50 mg PO Q6HR PRN 10/13/17 Metoprolol Succinate (ER) [Toprol XL] 200 mg PO QAM 10/01/20 Magnesium 800 mg PO QAM 10/04/22 Multivitamins, Thera [Multivitamin (formulary)] 1 tab PO QAM 10/04/22 Omeprazole 40 mg PO QAM 10/04/22 Potassium Citrate 3 tab PO QAM 10/04/22 Sildenafil Citrate 100 mg PO DIRECTED PRN 10/04/22 Acetaminophen Tab [Tylenol Tab] 1,000 mg PO Q6HR PRN #30 tablet 02/27/23 Albuterol Inhaler [Ventolin Hfa Inhaler] 1 - 2 puff INHALATION Q6H PRN 09/04/24 Rosuvastatin [Crestor] 10 mg PO QAM 09/04/24 Controlled Substance Measures - Controlled Substance Measures Is patient prescribed a controlled substance at discharge?: No
== END ==
LOC: PNWHC3 11:37
PROVIDERS: ATTEND Specialist
DX: M47.26 Other spondylosis with radiculopathy, lumbar region (principal); M43.16 Spondylolisthesis, lumbar region
CPT/HCPCS: 99211